=== PATIENT | male | born 1955 | race Caucasian/White ===

== ENCOUNTER 2016-11-09 05:46 | Day surgery (SDC) | payer MEDICARE ==
[2016-11-09] MEDS ORDERED: Versed 2 MG/2 ML Injection IV ONE (06:00)
[2016-11-09] MEDS ORDERED: DIPRIVAN 200 MG/20 ML IV ONE (06:00)
[2016-11-09] MEDS ORDERED: Lactated Ringers 1,000 ML IV SCH (06:30)
[2016-11-09] MEDS ORDERED: Lactated Ringers 1,000 ML IV ONE (08:15)
--- NOTE | 2016-11-09 09:50 | OP ---
SURGERY DATE/TIME: 11/09/2016 0655 PREOPERATIVE DIAGNOSIS: Screening exam. POSTOPERATIVE DIAGNOSIS: Normal colon. PROCEDURE: Colonoscopy. SURGEON: Dr. Marie. ANESTHESIA: MAC. Medications given by anesthesia department. HISTORY: The patient is a 60 year-old white male presenting now for screening colonoscopy. He was appraised of the risks of the procedure including the risk of perforation, phlebitis, untoward reaction to medication, bleeding and missed lesions. The patient verbalized his understanding and desired to have the procedure performed. DESCRIPTION OF PROCEDURE: The patient was given the medications by the anesthesia department. He had continuous pulse oximetry, ECG monitoring, intermittent blood pressure monitoring and tidal CO2 monitoring during the examination. He was placed in the left lateral decubitus position. A digital rectal examination was performed and revealed normal anal sphincter tone and no masses and normal prostate. The flexible Olympus pediatric colonoscope was used to intubate the rectum. A view of the colon was developed sequentially to the cecum. Upon insertion and withdrawal, including a retroflex view in the rectum, no mucosal lesions were encountered. The scope was removed from the patient who tolerated the procedure well and was sent back to OP recovery in good condition. The prep was noted to be fair to good.
[2016-11-09 11:32] VITALS: O2SAT 99
[2016-11-09 11:40] VITALS: BP 127/71; PULSE 62
== END 2016-11-09 08:25 | disposition home or self-care (01) ==
LOC: SDC 05:46
PROVIDERS: ATTEND Family Medicine
PROC: 0DJD8ZZ Inspection of Lower Intestinal Tract, Via Natural or Artificial Opening Endoscopic (ICD-10-PCS; principal; 2016-11-09)
DX: Z12.11 Encounter for screening for malignant neoplasm of colon (principal)
CPT/HCPCS: 00810; J2250; J2704

== ENCOUNTER 2022-07-13 05:40 | Day surgery (SDC) | payer MEDICARE ==
[2022-07-13] MEDS ORDERED: Lactated Ringers 1,000 ML IV SCH (06:30)
[2022-07-13] MEDS ORDERED: Versed 2 MG/2 ML Injection ONE (07:57)
[2022-07-13] MEDS ORDERED: DIPRIVAN 200 MG/20 ML IV ONE (07:57)
[2022-07-13] MEDS ORDERED: Xylocaine-Mpf 2% 5 Ml Vial ONE (07:57)
[2022-07-13 09:04] VITALS: O2SAT 98
[2022-07-13 09:10] VITALS: BP 122/78; PULSE 63
--- NOTE | 2022-07-13 11:18 | OP ---
SURGERY DATE/TIME: 07/13/2022 0759 PREOPERATIVE DIAGNOSIS: Screening exam. POSTOPERATIVE DIAGNOSIS: Mild to moderate sigmoid diverticulosis otherwise normal colon. PROCEDURE: Colonoscopy. SURGEON: Dr. Marie. ANESTHESIA: MAC. Medications given by anesthesia department. HISTORY: The patient is a 66-year-old white male presenting now for screening colonoscopy. He was appraised of the risks of the procedure including the risk of perforation, phlebitis, untoward reaction to medication, bleeding and missed lesions. The patient verbalized his understanding and desired to have the procedure performed. DESCRIPTION OF PROCEDURE: The patient was given the medications by the anesthesia department. He had continuous pulse oximetry, ECG monitoring and intermittent blood pressure monitoring during the examination. He was placed in the left lateral decubitus position. A digital rectal examination was performed and revealed normal anal sphincter tone, no masses and normal prostate. The flexible Olympus pediatric colonoscope was used to intubate the rectum. A view of the colon was developed sequentially to the cecum. Upon insertion and withdrawal was noted mild to moderate sigmoid diverticulosis otherwise no mucosal lesions were encountered. The scope was removed from the patient who tolerated the procedure well and was sent back to OP recovery in good condition. The prep was noted to be fair to good.
== END 2022-07-13 09:10 | disposition home or self-care (01) ==
LOC: SDC 05:40
PROVIDERS: ATTEND Family Medicine
DX: Z12.11 Encounter for screening for malignant neoplasm of colon (principal); K57.30 Diverticulosis of large intestine without perforation or abscess without bleeding
CPT/HCPCS: J2250; J2704

== ENCOUNTER 2023-12-19 17:35 | Observation (INO) | payer MEDICARE ==
--- NOTE | 2023-12-19 18:11 | ERPHSYRPT ---
- History of Present Illness Source: patient Exam Limitations: no limitations Patient Subjective Stated Complaint: Pt states 'I was out picking up sticks and my left arm just feels like something is stopping the blood flow, feels tight or swollen or stiff, it is like I have muscles again." Triage Nursing Assessment: Pt presented alert and oriented X 3, skin wpd. Pt ambulates with an upright steady gait, able to speak in clear full sentences. Pt left upper arm slightly larger than right, good CSM X 4. Occurred: this afternoon Method of Injury: unknown Quality: constant, tightness Severity of Pain-Max: none Severity of Pain-Current: none Extremities Pain Location: arm: left, elbow: left, forearm: left Modifying Factors: Improves With: nothing Associated Symptoms: No back pain, No chest discomfort, No chest pain, No jaw pain, No short of breath Hx Tetanus, Diphtheria Vaccination/Date Given: Yes (UNKNOWN) Hx Influenza Vaccination/Date Given: No Hx Pneumococcal Vaccination/Date Given: No Immunizations Up to Date: No <EPIFANIO DELATORRE - Last Filed: 12/19/23 18:51> <AYDEN HOANG - Last Filed: 12/19/23 23:19> - History of Present Illness Time Seen by Provider: 12/19/23 17:55 Physician History: 68yo m presents to ED via private vehicle for roughly 2h of LUE swelling involving his medial bicep and proximal medial forearm. Pt reports he noticed the swelling and tightness in his upper arm while he was picking up sticks in his yard. Pt denies any trauma to the area, denies any sob or cp. Pt reports he had pacemaker placed 4 months ago at [facility]. Pt denies any pain or change in sensation in the LUE. Pt reports some pain in the shoulder that is chronic. Pt has full ROM at left shoulder, elbow and wrist. (EPIFANIO DELATORRE) Allergies/Adverse Reactions: No Known Drug Allergies Allergy (Verified 07/13/22 06:20) Home Medications: Ascorbic Acid [Vitamin C] 1,000 mg PO BID 07/13/22 [History] Multivitamin [Multi-Vitamin Daily] 1 each PO DAILY 07/13/22 [History] Travel Risk - International Travel Have you traveled outside of the country in past 3 weeks: No - Emerging Infectious Disease Are you exhibiting symptoms associated with any current EIDs: No <EPIFANIO DELATORRE Filed: 12/19/23 18:51> - Review of Systems Constitutional: No Symptoms Respiratory: No Symptoms Cardiac: No Symptoms Abdominal/Gastrointestinal: No Symptoms Musculoskeletal: Other (swelling left UE) <EPIFANIO DELATORRE Filed: 12/19/23 18:51> - Past Medical History Pertinent Past Medical History: Yes Neurological History: No Pertinent History ENT History: No Pertinent History Cardiac History: No Pertinent History Respiratory History: No Pertinent History Endocrine Medical History: No Pertinent History Musculoskeletal History: Arthritis GI Medical History: No Pertinent History History: No Pertinent History Psycho-Social History: No Pertinent History Male Reproductive Disorders: No Pertinent History Other Medical History: 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 - Past Surgical History Past Surgical History: Yes Neuro Surgical History: No Pertinent History Cardiac: No Pertinent History Respiratory: No Pertinent History Gastrointestinal: Cholecystectomy Genitourinary: No Pertinent History Musculoskeletal: No Pertinent History Male Surgical History: No Pertinent History Other Surgical History: BACK SURGERY,colonscopy. pacemaker - Social History Smoking Status: Former smoker Exposure to second hand smoke: No Drug Use: none Patient Lives Alone: No - Social Determinants of Health Will the patient participate in the screening: Declined to provide <EPIFANIO DELATORRE Filed: 12/19/23 18:51> - Physical Exam General Appearance: no apparent distress, alert Cardiovascular/Respiratory Exam: chest non-tender, normal breath sounds, regular rate/rhythm, heart sounds normal, no respiratory distress, No subcutaneous emphysema Shoulder Exam: normal inspection, non-tender, no evidence of injury, normal ROM Elbow/Forearm Exam: non-tender, no evidence of injury, normal ROM, swelling (Left), No bone tenderness, No deformity, No pain, No soft tissue tenderness Wrist Exam: normal inspection, non-tender, no evidence of injury, normal ROM Hand Exam: normal inspection, non-tender, no evidence of injury, normal ROM Neuro/Tendon Exam: normal sensation, normal motor functions, normal tendon functions, responds to pain, no evidence tendon injury Mental Status Exam: alert, oriented x 3, cooperative Skin Exam: warm, dry, other (slightly erythematous ) SpO2 Interpretation: normal SpO2: 98 O2 Delivery: Room Air <EPIFANIO DELATORRE Filed: 12/19/23 18:51> - Nursing Vital Signs Nursing Vital Signs: Initial Vital Signs Temperature 97.6 F 12/19/23 17:40 Pulse Rate 88 12/19/23 17:40 Respiratory Rate 20 12/19/23 17:40 Blood Pressure 146/89 12/19/23 17:40 O2 Sat by Pulse Oximetry 98 12/19/23 17:40 Pain Scale Pain Intensity 0 - Course EKG Interpreted by Me: RATE (71), Sinus Rhythm, Non-specific ST Changes, Other (qtcb 419, not suggestive of acute ischemia) <EPIFANIO DELATORRE - Last Filed: 12/19/23 18:51> - CT Exams Chest CT Interpretation: Tele-radiologist Report, No PE Left Upper Extremity CT Interpretation: Tele-radiologist Report, Other (ulnar and interosseus artery possible thrombosis) - Radiology Ultrasound Exam Left Venous Upper Extremity Ultrasound: tele radiology report, Other (left subclavian thrombosis) <AYDEN HOANG - Last Filed: 12/19/23 23:19> Ordered Tests: Active Orders 24 hr Category Date Time Status EKG-ER Only STAT Care 12/19/23 17:57 Active IV Insertion STAT Care 12/19/23 19:33 Active CHEST WITH CONTRAST [CT] Stat Exams 12/19/23 19:35 Completed CTA UPPER EXTREMITY W/CONTRAST [CT] Stat Exams 12/19/23 19:35 Completed VENOUS UNILAT/LIMITED EXTREMIT [US] Stat Exams 12/19/23 17:59 Completed CBC W DIFF Stat Lab 12/19/23 18:10 Completed CMP Stat Lab 12/19/23 18:10 Completed D-DIMER QUANTITATIVE Stat Lab 12/19/23 18:10 Completed PROTIME WITH INR Stat Lab 12/19/23 18:10 Completed PTT Stat Lab 12/19/23 18:10 Completed TROPONIN Q4H Lab 12/19/23 18:10 Completed TROPONIN Q4H Lab 12/19/23 22:37 Completed TROPONIN Q4H Lab 12/20/23 02:00 Ordered Transfer Order Routine Transfer 12/19/23 Ordered Medication Summary Discontinued Medications Generic Name Dose Route Start Last Admin Trade Name Freq PRN Reason Stop Dose Admin Enoxaparin Sodium 100 mg 12/19/23 19:45 Enoxaparin Sodium 100 Mg/Ml Syringe 1 mg/kg (100 mg) 12/19/23 19:46 SQ ONCE ONE Enoxaparin Sodium 100 mg 12/19/23 19:42 12/19/23 19:44 Enoxaparin Sodium 120 Mg/0.8 Ml Syringe SQ 12/19/23 19:43 100 mg STAT STA Administration Enoxaparin Sodium Confirm 12/19/23 19:41 Enoxaparin Sodium 120 Mg/0.8 Ml Syringe Administered 12/19/23 19:42 Dose 120 mg SQ .STK-MED ONE Lab/Rad Data: Laboratory Result Diagrams 12/19/23 18:10 12/19/23 18:10 Laboratory Results 12/19/23 12/19/23 12/19/23 Range/Units 22:37 18:10 18:10 WBC (4.23-9.07) x10^3/uL RBC (4.63-6.08) x10^6/uL Hgb (13.7-17.5) g/dL Hct (40.1-51.0) % MCV (79.0-92.2) fL MCH (25.7-32.2) pg MCHC (32.3-36.5) g/dL RDW (11.6-14.4) % Plt Count (163-337) x10^3/uL MPV (9.4-12.4) fL Gran % (34.0-67.9) % Immature Gran % (Auto) (0.001-0.429) % Nucleat RBC Rel Count (0.00-0.2) % Eos # (Auto) (0.04-0.54) x10^3/uL Immature Gran # (Auto) (0.001-0.031) x10^3u/L Absolute Lymphs (auto) (1.32-3.57) x10^3/uL Absolute Monos (auto) (0.30-0.82) x10^3/uL Absolute Nucleated RBC (0.00-0.012) x10^3u/L Lymphocytes % (21.8-53.1) % Monocytes % (5.3-12.2) % Eosinophils % (0.8-7.0) % Basophils % (0.2-1.2) % Absolute Granulocytes (1.78-5.38) x10^3/uL Basophils # (0.01-0.08) x10^3/uL PT 10.6 (9.4-12.5) SECONDS INR 0.97 (0.8-3.0) APTT 27.7 (25.1-36.5) SECONDS D-Dimer 1.19 H* (0.0-0.50) mg/L Sodium (135-145) mmol/L Potassium (3.5-5.1) mmol/L Chloride (98-107) mmol/L Carbon Dioxide (22-30) mmol/L Anion Gap (5-15) MEQ/L BUN (9-20) mg/dL Creatinine (0.66-1.25) mg/dL Estimated GFR ML/MIN Glucose (74-106) mg/dL Calcium (8.4-10.2) mg/dL Total Bilirubin (0.2-1.3) mg/dL AST (17-59) U/L ALT (0-50) U/L Alkaline Phosphatase (38-126) U/L Troponin I < 0.012 < 0.012 (0.000-0.033) ng/mL Serum Total Protein (6.3-8.2) g/dL Albumin (3.5-5.0) g/dL 12/19/23 12/19/23 Range/Units 18:10 18:10 WBC 7.1 (4.23-9.07) x10^3/uL RBC 4.85 (4.63-6.08) x10^6/uL Hgb 15.1 (13.7-17.5) g/dL Hct 44.5 (40.1-51.0) % MCV 91.8 (79.0-92.2) fL MCH 31.1 (25.7-32.2) pg MCHC 33.9 (32.3-36.5) g/dL RDW 12.4 (11.6-14.4) % Plt Count 175 (163-337) x10^3/uL MPV 9.5 (9.4-12.4) fL Gran % 66.7 (34.0-67.9) % Immature Gran % (Auto) 0.3 (0.001-0.429) % Nucleat RBC Rel Count 0.0 (0.00-0.2) % Eos # (Auto) 0.08 (0.04-0.54) x10^3/uL Immature Gran # (Auto) 0.02 (0.001-0.031) x10^3u/L Absolute Lymphs (auto) 1.55 (1.32-3.57) x10^3/uL Absolute Monos (auto) 0.70 (0.30-0.82) x10^3/uL Absolute Nucleated RBC 0.00 (0.00-0.012) x10^3u/L Lymphocytes % 21.8 (21.8-53.1) % Monocytes % 9.8 (5.3-12.2) % Eosinophils % 1.1 (0.8-7.0) % Basophils % 0.3 (0.2-1.2) % Absolute Granulocytes 4.74 (1.78-5.38) x10^3/uL Basophils # 0.02 (0.01-0.08) x10^3/uL PT (9.4-12.5) SECONDS INR (0.8-3.0) APTT (25.1-36.5) SECONDS D-Dimer (0.0-0.50) mg/L Sodium 139 (135-145) mmol/L Potassium 3.7 (3.5-5.1) mmol/L Chloride 107 (98-107) mmol/L Carbon Dioxide 24 (22-30) mmol/L Anion Gap 12.1 (5-15) MEQ/L BUN 11 (9-20) mg/dL Creatinine 0.95 (0.66-1.25) mg/dL Estimated GFR 88.3 ML/MIN Glucose 109 H (74-106) mg/dL Calcium 9.4 (8.4-10.2) mg/dL Total Bilirubin 0.70 (0.2-1.3) mg/dL AST 32 (17-59) U/L ALT 24 (0-50) U/L Alkaline Phosphatase 66 (38-126) U/L Troponin I (0.000-0.033) ng/mL Serum Total Protein 7.2 (6.3-8.2) g/dL Albumin 4.0 (3.5-5.0) g/dL <EPIFANIO DELATORRE - Last Filed: 12/19/23 18:51> - Progress Progress: improved Discussed with Dr.: Other (Shahida Ramos) Counseled pt/family regarding: lab results, diagnosis, need for follow-up, rad results <AYDEN HOANG - Last Filed: 12/19/23 23:19> - Progress Progress Note: 12/19/23 18:42 D dimer elevated at 1.19, US called in for DVT evaluation (EPIFANIO DELATORRE) 12/19/23 19:[address] Delatorre at 1900, LUE venous duplex pending. Results reported back to me at 1935, US shows obstructing left subclavian DVT. 100mg Lovenox ordered for loading dose, CTA left upper extremity and chest ordered. Initiated consultation with [facility] vascular team to discuss next steps. 2002 - Discussed case with Dr. Ramos, top lift compresser at [facility] who reviewed US and recommended observation and bridge Lovenox to Xarelto and have patient follow up with his aircraft seat upholsterer early next week. Did advise that if needed there wasn't anyone at [place] that would be able to thrombectomy at this location and recommended [place]. 2017 - Discussed case with Dr. Pinedo, vascular at [facility] in [place] who agreed with previous plan, would review additional imaging once available to make final decision. CTA chest and left upper extremity resulted. Chest negative for PE. LUE showed possible ulnar and interosseous artery thrombosis. 2252 - Discussed with Dr. Pinedo again after imaging, he reviewed imaging with me on the phone and did not agree that the ulnar or interosseous artery was thrombosed and recommended bridge from Lovenox to Xarelto with close follow up with patient's aircraft seat upholsterer. 2306 - Discussed case with Dr. Colón who accepted for observation. (AYDEN HOANG) Medical Desision Making - Diagnostic Testing Diagnostic test were ordered, analyzed, and reviewed by me: Yes Radiological Interpretation: Interpreted by me, Reviewed by me, Teleradiologist Report - Risk of complications The pt has a mod risk of morbidity or mortality based on: Need for prescription drug management The pt has a high risk of morbidity or mortality based on: Decision regarding hospitilization or escalation of hosp level of care <AYDEN HOANG - Last Filed: 12/19/23 23:19> - Departure Departure Disposition: Home Critical Care Time: No <EPIFANIO DELATORRE - Last Filed: 12/19/23 18:51> - Departure Departure Disposition: Observation Critical Care Time: No <AYDEN HOANG - Last Filed: 12/19/23 23:19> - Departure Clinical Impression: Left arm swelling, Left subclavian vein thrombosis Condition: Good Referrals: LUCIA TITUS [Primary Care Provider] - Follow up/PCP as directed Instructions: Deep Vein Thrombosis (Blood Clots in the Arm) (DC)
[2023-12-19 18:16] LABS: Absolute Neutrophil Ct (ANC) 4.74 x10^3/uL (1.78-5.38); BASOPHIL % 0.3 % (0.2-1.2); Basophil (Absolute #) 0.02 x10^3/uL (0.01-0.08); Eosinophil % 1.1 % (0.8-7.0); Eosinophil (Absolute #) 0.08 x10^3/uL (0.04-0.54); Hematocrit 44.5 % (40.1-51.0); Hemoglobin 15.1 g/dL (13.7-17.5); IMMATURE GRAN # 0.02 x10^3u/L (0.001-0.031); IMMATURE GRAN % 0.3 % (0.001-0.429); Lymphocyte (Absolute #) 1.55 x10^3/uL (1.32-3.57); Lymphocytes % 21.8 % (21.8-53.1); Mean Cell Volume 91.8 fL (79.0-92.2); Mean Corpuscular Hemoglobin 31.1 pg (25.7-32.2); Mean Corpuscular Hgb Concent. 33.9 g/dL (32.3-36.5); Mean Platelet Volume 9.5 fL (9.4-12.4); Monocytes % 9.8 % (5.3-12.2); Neutrophil % 66.7 % (34.0-67.9); Platelet Count 175 x10^3/uL (163-337); Red Blood Count 4.85 x10^6/uL (4.63-6.08); Red Cell Distribution Width 12.4 % (11.6-14.4); White Blood Count 7.1 x10^3/uL (4.23-9.07)
[2023-12-19 18:30] LABS: ANION GAP 12.1 MEQ/L (5-15); BILIRUBIN,TOTAL 0.7 mg/dL (0.2-1.3); Calcium 9.4 mg/dL (8.4-10.2); Creatinine 1 0.95 mg/dL (0.66-1.25); EST GLOMERULAR FILTRATION RATE 88.3 ML/MIN; Potassium 3.7 mmol/L (3.5-5.1); Total Protein 7.2 g/dL (6.3-8.2)
[2023-12-19 18:39] LABS: INR 0.97 (0.8-3.0); PROTIME 10.6 SECONDS (9.4-12.5); PTT 27.7 SECONDS (25.1-36.5)
[2023-12-19 18:42] LABS: D-DIMER QUANTITATIVE 1.19 mg/L (0.0-0.50)
[2023-12-19] MEDS ORDERED: ENOXAPARIN SODIUM SQ ONE ×2 (19:41→19:45)
[2023-12-19] MEDS: ENOXAPARIN SODIUM SQ STA (19:44)
--- NOTE | 2023-12-19 20:11 | XRAY ---
Indication: Left upper extremity swelling. Status post pacemaker placement. Two-dimensional sonogram and color Doppler imaging major venous vessels left upper extremity performed. Comparison: None Evaluation subclavian vein limited due to cardiac pacer leads in situ. No flow in the subclavian vein. No thrombus seen in the remaining left jugular, axillary, basilic, brachial, cephalic, median cubital, radial, and ulnar veins. Patent veins demonstrate normal compressibility and normal venous waveforms. Impression: 1. Limited left upper extremity venous sonogram due to cardiac pacer leads in subclavian vein. No flow in subclavian vein. Cannot exclude venous thrombus. 2. Remaining left upper extremity negative for venous thrombosis. Comment: Preliminary report was given.
--- NOTE | 2023-12-19 22:11 | XRAY ---
CLINICAL HISTORY: left arm pain, swelling, dvt COMPARISON: None. TECHNIQUE: Contiguous 3.[address] images of the chest were acquired with administration of intravenous contrast. Coronal and sagittal reconstructions were obtained. One of the following dose reduction techniques were utilized for this exam: Automated exposure control, adjustment of the mA and/or kV according to patient size, use of iterative reconstruction. FINDINGS: No evidence of acute pulmonary thromboembolism. 5 mm calcified nodule in posterior segment of right upper lobe. Minimal subpleural basal atelectatic changes. No free or encysted pleural effusion. Heart size is normal, and there is no pericardial effusion. No pathologically enlarged mediastinal, hilar or axillary lymph node identified. There is no definite mass lesion in the chest wall. Degenerative changes in thoracic spine. Scanned upper abdomen is unremarkable. IMPRESSION: 1. No evidence of acute pulmonary thromboembolism. 2. 5 mm calcified nodule in posterior segment of right upper lobe. No follow-up is required 3. Minimal subpleural basal atelectatic changes. Electronically Signed by: Eusebio Cardenas MD. (12/19/2023 22:07:37 EDT)
--- NOTE | 2023-12-19 22:41 | XRAY ---
CLINICAL HISTORY: left arm pain, swelling, dvt COMPARISON: No previous studies are available for comparison. TECHNIQUE: CT angiography of the left upper extremity was performed with the administration of intravenous contrast. One of the following dose reduction techniques was utilized for this exam. Automated exposure control, adjustment of the mA and/or kV according to patient size, and use of iterative reconstruction. 3D reconstruction was performed. FINDINGS: Vessels: The left subclavian, axillary and brachial arteries are normally opacified with contrast. Faint opacification of proximal and mid portions of left ulnar artery with non-opacification in its distal portion, representing thrombosis. The left interosseous arteriea are also not visualized. The left radial artery is normally opacified. Bones: The bony structures are intact with no evidence of acute fracture or dislocation. There is no evidence of lytic or sclerotic lesions. The cortical and trabecular bone patterns are normal. Joints: The joint spaces are preserved without evidence of joint effusion, subluxation, or significant degenerative changes. Soft Tissues: Mild soft tissue swelling with edema in left upper extremity, predominantly around the elbow region. IMPRESSION: 1. Faint opacification of proximal and mid portions of left ulnar artery with non-opacification in its distal portion, representing thrombosis. 2. The left interosseous arteries are also not visualized. Possible thrombosis 3. Mild soft tissue swelling with edema in left upper extremity, predominantly around the elbow region. [facility] ER was called at [phone] at 9:33 PM ORDER MANAGEMENT SPECIALIST, 12/19/2023 and [facility] Nurse was informed regarding the presence of Significant Medical Findings in the report. Electronically Signed by: Eusebio Cardenas MD. (12/19/2023 22:36:11 EDT)
--- NOTE | 2023-12-19 23:39 | PCM.HP ---
History of Present Illness - Chief Complaint Chief Complaint: Left upper extremity swelling, sudden onset Date: 12/19/23 History of Present Illness: is a 68 year old male with medical history significant for came to the ER with complaint of sudden onset of left upper extremity swelling while he was picking up substances from his yard. Denied having any chest pain shortness of breath dizziness no prior episode of this type of swelling ever before noted. In the ER initial blood pressure was not 146/89 he was afebrile with pulse of 70 as far as blood workup concerned all came out unremarkable .D-dimer was running high he got left upper extremity DVT scan that came back positive for obstructing left subclavian DVT. He received 1 stat dose of Lovenox .in the [facility] vascular team consulted advised to get CTA left upper extremity and chest. It came out concerning for left ulnar artery thrombosis discussed case with Dr. Pinedo at [facility] who agreed with the plan of giving Lovenox and discharging on Eliquis with follow-up his chief procurement officer early next week. He reviewed images in regard to ulnar and interosseous artery thrombosis did not seem convinced about the report. We are admitting patient for observation overnight. - Review of Systems All Other Systems: Reviewed and Negative Medications & Allergies Home Medications: Home Medication List Ascorbic Acid [Vitamin C] 1,000 mg PO BID 07/13/22 [History Confirmed 12/19/23] Multivitamin [Multi-Vitamin Daily] 1 each PO DAILY 07/13/22 [History Confirmed 12/19/23] Allergies/Adverse Reactions: Allergies Allergy/AdvReac Type Severity Reaction Status Date / Time No Known Drug Allergies Allergy Verified 12/20/23 00:14 - Past Medical History Past Medical History: Yes Neurological History: No Pertinent History ENT History: No Pertinent History Cardiac History: No Pertinent History Respiratory History: No Pertinent History Endocrine Medical History: No Pertinent History Musculoskelatal History: Arthritis GI Medical History: No Pertinent History History: No Pertinent History Pyscho-Social History: No Pertinent History Male Reproductive Disorders: No Pertinent History Comment: 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 - Past Surgical History Past Surgical History: Yes Neuro Surgical History: No Pertinent History Cardiac History: No Pertinent History Respiratory Surgery: No Pertinent History GI Surgical History: Cholecystectomy Genitourinary Surgical Hx: No Pertinent History Musculskeletal Surgical Hx: No Pertinent History Male Surgical History: No Pertinent History Other Surgical History: BACK SURGERY,colonscopy. pacemaker Significant Family History: no pertinent family hx - Social History Smoking Status: Former smoker Exposure to second hand smoke: No Alcohol: None Drug Use: none - Social Determinants of Health Will the patient participate in the screening: Declined to provide - Physical Exam Vital Signs: Vital Signs - 24 hr Temp Pulse Resp BP BP Pulse Ox 12/19/23 23:00 60 18 127/76 97 12/19/23 22:30 62 16 144/77 98 12/19/23 22:00 60 124/74 98 12/19/23 21:36 62 135/77 97 12/19/23 20:30 60 107/70 12/19/23 20:15 64 131/79 97 12/19/23 20:00 63 16 133/77 97 12/19/23 19:45 60 131/77 97 12/19/23 19:30 64 139/80 98 12/19/23 19:15 60 119/73 97 12/19/23 19:00 60 123/80 97 12/19/23 18:51 98 12/19/23 18:45 60 110/81 98 12/19/23 18:30 60 124/78 97 12/19/23 18:15 60 125/79 96 12/19/23 18:00 75 18 128/84 96 12/19/23 17:45 146/78 96 12/19/23 17:40 97.6 F 88 20 146/89 98 Additional Findings: 12/19/23 23:38 HEENT Young aged, average built in no distress NECK Supple,no thyromegaly, CVS S1+S2 + 0, no murmers RESP Bilateral equal air entry without Crepts/Wheezes heard GIT Soft non tender,non distended Skin, No rah, no Bruises LEGS No Edema PSYCH Normal,mood, judgement and insight NEURO AOX3, no focal deficit Results - Labs Lab/Micro Results: Lab Results-Last 24 Hours 12/19/23 12/19/23 12/19/23 Range/Units 18:10 18:10 18:10 WBC 7.1 (4.23-9.07) x10^3/uL RBC 4.85 (4.63-6.08) x10^6/uL Hgb 15.1 (13.7-17.5) g/dL Hct 44.5 (40.1-51.0) % MCV 91.8 (79.0-92.2) fL MCH 31.1 (25.7-32.2) pg MCHC 33.9 (32.3-36.5) g/dL RDW 12.4 (11.6-14.4) % Plt Count 175 (163-337) x10^3/uL MPV 9.5 (9.4-12.4) fL Gran % 66.7 (34.0-67.9) % Immature Gran % (Auto) 0.3 (0.001-0.429) % Nucleat RBC Rel Count 0.0 (0.00-0.2) % Eos # (Auto) 0.08 (0.04-0.54) x10^3/uL Immature Gran # (Auto) 0.02 (0.001-0.031) x10^3u/L Absolute Lymphs (auto) 1.55 (1.32-3.57) x10^3/uL Absolute Monos (auto) 0.70 (0.30-0.82) x10^3/uL Absolute Nucleated RBC 0.00 (0.00-0.012) x10^3u/L Lymphocytes % 21.8 (21.8-53.1) % Monocytes % 9.8 (5.3-12.2) % Eosinophils % 1.1 (0.8-7.0) % Basophils % 0.3 (0.2-1.2) % Absolute Granulocytes 4.74 (1.78-5.38) x10^3/uL Basophils # 0.02 (0.01-0.08) x10^3/uL PT 10.6 (9.4-12.5) SECONDS INR 0.97 (0.8-3.0) APTT 27.7 (25.1-36.5) SECONDS D-Dimer 1.19 H* (0.0-0.50) mg/L Sodium 139 (135-145) mmol/L Potassium 3.7 (3.5-5.1) mmol/L Chloride 107 (98-107) mmol/L Carbon Dioxide 24 (22-30) mmol/L Anion Gap 12.1 (5-15) MEQ/L BUN 11 (9-20) mg/dL Creatinine 0.95 (0.66-1.25) mg/dL Estimated GFR 88.3 ML/MIN Glucose 109 H (74-106) mg/dL Calcium 9.4 (8.4-10.2) mg/dL Total Bilirubin 0.70 (0.2-1.3) mg/dL AST 32 (17-59) U/L ALT 24 (0-50) U/L Alkaline Phosphatase 66 (38-126) U/L Troponin I (0.000-0.033) ng/mL Serum Total Protein 7.2 (6.3-8.2) g/dL Albumin 4.0 (3.5-5.0) g/dL 12/19/23 12/19/23 Range/Units 18:10 22:37 WBC (4.23-9.07) x10^3/uL RBC (4.63-6.08) x10^6/uL Hgb (13.7-17.5) g/dL Hct (40.1-51.0) % MCV (79.0-92.2) fL MCH (25.7-32.2) pg MCHC (32.3-36.5) g/dL RDW (11.6-14.4) % Plt Count (163-337) x10^3/uL MPV (9.4-12.4) fL Gran % (34.0-67.9) % Immature Gran % (Auto) (0.001-0.429) % Nucleat RBC Rel Count (0.00-0.2) % Eos # (Auto) (0.04-0.54) x10^3/uL Immature Gran # (Auto) (0.001-0.031) x10^3u/L Absolute Lymphs (auto) (1.32-3.57) x10^3/uL Absolute Monos (auto) (0.30-0.82) x10^3/uL Absolute Nucleated RBC (0.00-0.012) x10^3u/L Lymphocytes % (21.8-53.1) % Monocytes % (5.3-12.2) % Eosinophils % (0.8-7.0) % Basophils % (0.2-1.2) % Absolute Granulocytes (1.78-5.38) x10^3/uL Basophils # (0.01-0.08) x10^3/uL PT (9.4-12.5) SECONDS INR (0.8-3.0) APTT (25.1-36.5) SECONDS D-Dimer (0.0-0.50) mg/L Sodium (135-145) mmol/L Potassium (3.5-5.1) mmol/L Chloride (98-107) mmol/L Carbon Dioxide (22-30) mmol/L Anion Gap (5-15) MEQ/L BUN (9-20) mg/dL Creatinine (0.66-1.25) mg/dL Estimated GFR ML/MIN Glucose (74-106) mg/dL Calcium (8.4-10.2) mg/dL Total Bilirubin (0.2-1.3) mg/dL AST (17-59) U/L ALT (0-50) U/L Alkaline Phosphatase (38-126) U/L Troponin I < 0.012 < 0.012 (0.000-0.033) ng/mL Serum Total Protein (6.3-8.2) g/dL Albumin (3.5-5.0) g/dL - Radiology Impressions Radiology Exams & Impressions: Radiology Procedures Category Date Time Status CHEST WITH CONTRAST [CT] Stat Exams 12/19/23 19:35 Completed CTA UPPER EXTREMITY W/CONTRAST [CT] Stat Exams 12/19/23 19:35 Completed VENOUS UNILAT/LIMITED EXTREMIT [US] Stat Exams 12/19/23 17:59 Completed Assessment/Plan (1) Left arm swelling Current Visit: Yes Status: Acute Code(s): M79.89 - OTHER SPECIFIED SOFT TISSUE DISORDERS (2) Left subclavian vein thrombosis Current Visit: Yes Status: Acute Code(s): I82.B12 - ACUTE EMBOLISM AND THROMBOSIS OF LEFT SUBCLAVIAN VEIN Telemedicine Encounter - Telemedicine Encounter Telemedicine Encounter: The entirety of this encounter was performed via Telemedicine This visit was performed using real-time audio and video connection between my location and thepatients locationwith the assistance of a surrogateat the patients location. Written or verbal consent was obtained from the patient/guardian to perform this visit using[facility] [employer] technology. Any patient questions regarding the telemedicine interaction were answered. 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 I have reviewed patient lab vitals and imaging in detail all question and concerns were addressed
[2023-12-20 00:13] VITALS: RESP 16
[2023-12-20] MEDS ORDERED: NORCO 5/325 MG PO PRN (00:33)
[2023-12-20] MEDS: ENOXAPARIN SODIUM SQ SCH (02:19)
[2023-12-20 04:50] LABS: Hematocrit 42.3 % (40.1-51.0); Hemoglobin 14.2 g/dL (13.7-17.5); Mean Cell Volume 91.6 fL (79.0-92.2); Mean Corpuscular Hemoglobin 30.7 pg (25.7-32.2); Mean Corpuscular Hgb Concent. 33.6 g/dL (32.3-36.5); Mean Platelet Volume 10.1 fL (9.4-12.4); Platelet Count 174 x10^3/uL (163-337); Red Blood Count 4.62 x10^6/uL (4.63-6.08); White Blood Count 6.4 x10^3/uL (4.23-9.07)
[2023-12-20 05:21] LABS: ANION GAP 8.9 MEQ/L (5-15); Creatinine 1 0.91 mg/dL (0.66-1.25); Potassium 3.5 mmol/L (3.5-5.1)
[2023-12-20 07:54] VITALS: TEMP 97.8
--- NOTE | 2023-12-20 09:16 | PCM.DS ---
Discharge Summary Date of Admission: 12/19/23 23:40 Date of Discharge: 12/20/23 Admitting Physician: STEFANI CEE MD Primary Care Provider: LUCIA TITUS Allergies Allergies No Known Drug Allergies Allergy (Verified 12/20/23 00:14) Hospital Summary - Hospital Course Hospital Course: is a 68 year old male with medical history significant for came to the ER with complaint of sudden onset of left upper extremity swelling while he was picking up substances from his yard. Denied having any chest pain shortness of breath dizziness no prior episode of this type of swelling ever before noted. In the ER initial blood pressure was not 146/89 he was afebrile with pulse of 70 as far as blood workup concerned all came out unremarkable. D-dimer elevated, left upper extremity DVT scan that came back positive for obstructing left subclavian DVT. He received 1 stat dose of Lovenox. In the ER Dr. Olsen discussed with [facility] vascular team who advised to get CTA left upper extremity and chest. 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 Olsen-discussed case with Dr. Pinedo at [facility] who agreed with the plan of giving Lovenox and discharging on Eliquis with follow-up his insurance broker early next week. He reviewed images in regard to ulnar and interosseous artery thrombosis did not seem convinced about the report. Eliquis started today. Case management to check on cost of meds prior to d/c. Advised pt to elevate left arm to heart level at home. - Vitals & Intake/Output Vital Signs: Vital Signs Temperature 97.8 F 12/20/23 07:54 Pulse Rate 62 12/20/23 07:54 Respiratory Rate 16 12/20/23 07:54 Blood Pressure 114/58 12/20/23 07:54 O2 Sat by Pulse Oximetry 95 12/20/23 07:54 Intake & Output: Intake & Output 12/17/23 12/18/23 12/19/23 12/20/23 11:59 11:59 11:59 11:59 Intake Total 480 Balance 480 Weight 89 kg - Lab Result Diagrams: 12/20/23 04:20 12/20/23 04:20 Lab Results-Last 24 Hrs: Lab Results-Last 24 Hours 10/20/24 10/20/24 10/20/24 Range/Units 18:10 18:10 18:10 WBC 7.1 (4.23-9.07) x10^3/uL RBC 4.85 (4.63-6.08) x10^6/uL Hgb 15.1 (13.7-17.5) g/dL Hct 44.5 (40.1-51.0) % MCV 91.8 (79.0-92.2) fL MCH 31.1 (25.7-32.2) pg MCHC 33.9 (32.3-36.5) g/dL RDW 12.4 (11.6-14.4) % Plt Count 175 (163-337) x10^3/uL MPV 9.5 (9.4-12.4) fL Gran % 66.7 (34.0-67.9) % Immature Gran % (Auto) 0.3 (0.001-0.429) % Nucleat RBC Rel Count 0.0 (0.00-0.2) % Eos # (Auto) 0.08 (0.04-0.54) x10^3/uL Immature Gran # (Auto) 0.02 (0.001-0.031) x10^3u/L Absolute Lymphs (auto) 1.55 (1.32-3.57) x10^3/uL Absolute Monos (auto) 0.70 (0.30-0.82) x10^3/uL Absolute Nucleated RBC 0.00 (0.00-0.012) x10^3u/L Lymphocytes % 21.8 (21.8-53.1) % Monocytes % 9.8 (5.3-12.2) % Eosinophils % 1.1 (0.8-7.0) % Basophils % 0.3 (0.2-1.2) % Absolute Granulocytes 4.74 (1.78-5.38) x10^3/uL Basophils # 0.02 (0.01-0.08) x10^3/uL PT 10.6 (9.4-12.5) SECONDS INR 0.97 (0.8-3.0) APTT 27.7 (25.1-36.5) SECONDS D-Dimer 1.19 H* (0.0-0.50) mg/L Sodium 139 (135-145) mmol/L Potassium 3.7 (3.5-5.1) mmol/L Chloride 107 (98-107) mmol/L Carbon Dioxide 24 (22-30) mmol/L Anion Gap 12.1 (5-15) MEQ/L BUN 11 (9-20) mg/dL Creatinine 0.95 (0.66-1.25) mg/dL Estimated GFR 88.3 ML/MIN Glucose 109 H (74-106) mg/dL Calcium 9.4 (8.4-10.2) mg/dL Total Bilirubin 0.70 (0.2-1.3) mg/dL AST 32 (17-59) U/L ALT 24 (0-50) U/L Alkaline Phosphatase 66 (38-126) U/L Troponin I (0.000-0.033) ng/mL Serum Total Protein 7.2 (6.3-8.2) g/dL Albumin 4.0 (3.5-5.0) g/dL 12/19/23 12/19/23 12/20/23 Range/Units 18:10 22:37 04:20 WBC (4.23-9.07) x10^3/uL RBC (4.63-6.08) x10^6/uL Hgb (13.7-17.5) g/dL Hct (40.1-51.0) % MCV (79.0-92.2) fL MCH (25.7-32.2) pg MCHC (32.3-36.5) g/dL RDW (11.6-14.4) % Plt Count (163-337) x10^3/uL MPV (9.4-12.4) fL Gran % (34.0-67.9) % Immature Gran % (Auto) (0.001-0.429) % Nucleat RBC Rel Count (0.00-0.2) % Eos # (Auto) (0.04-0.54) x10^3/uL Immature Gran # (Auto) (0.001-0.031) x10^3u/L Absolute Lymphs (auto) (1.32-3.57) x10^3/uL Absolute Monos (auto) (0.30-0.82) x10^3/uL Absolute Nucleated RBC (0.00-0.012) x10^3u/L Lymphocytes % (21.8-53.1) % Monocytes % (5.3-12.2) % Eosinophils % (0.8-7.0) % Basophils % (0.2-1.2) % Absolute Granulocytes (1.78-5.38) x10^3/uL Basophils # (0.01-0.08) x10^3/uL PT (9.4-12.5) SECONDS INR (0.8-3.0) APTT (25.1-36.5) SECONDS D-Dimer (0.0-0.50) mg/L Sodium (135-145) mmol/L Potassium (3.5-5.1) mmol/L Chloride (98-107) mmol/L Carbon Dioxide (22-30) mmol/L Anion Gap (5-15) MEQ/L BUN (9-20) mg/dL Creatinine (0.66-1.25) mg/dL Estimated GFR ML/MIN Glucose (74-106) mg/dL Calcium (8.4-10.2) mg/dL Total Bilirubin (0.2-1.3) mg/dL AST (17-59) U/L ALT (0-50) U/L Alkaline Phosphatase (38-126) U/L Troponin I < 0.012 < 0.012 < 0.012 (0.000-0.033) ng/mL Serum Total Protein (6.3-8.2) g/dL Albumin (3.5-5.0) g/dL 12/20/23 12/20/23 Range/Units 04:20 04:20 WBC 6.4 (4.23-9.07) x10^3/uL RBC 4.62 L (4.63-6.08) x10^6/uL Hgb 14.2 (13.7-17.5) g/dL Hct 42.3 (40.1-51.0) % MCV 91.6 (79.0-92.2) fL MCH 30.7 (25.7-32.2) pg MCHC 33.6 (32.3-36.5) g/dL RDW 13.0 (11.6-14.4) % Plt Count 174 (163-337) x10^3/uL MPV 10.1 (9.4-12.4) fL Gran % (34.0-67.9) % Immature Gran % (Auto) (0.001-0.429) % Nucleat RBC Rel Count (0.00-0.2) % Eos # (Auto) (0.04-0.54) x10^3/uL Immature Gran # (Auto) (0.001-0.031) x10^3u/L Absolute Lymphs (auto) (1.32-3.57) x10^3/uL Absolute Monos (auto) (0.30-0.82) x10^3/uL Absolute Nucleated RBC (0.00-0.012) x10^3u/L Lymphocytes % (21.8-53.1) % Monocytes % (5.3-12.2) % Eosinophils % (0.8-7.0) % Basophils % (0.2-1.2) % Absolute Granulocytes (1.78-5.38) x10^3/uL Basophils # (0.01-0.08) x10^3/uL PT (9.4-12.5) SECONDS INR (0.8-3.0) APTT (25.1-36.5) SECONDS D-Dimer (0.0-0.50) mg/L Sodium 138 (135-145) mmol/L Potassium 3.5 (3.5-5.1) mmol/L Chloride 106 (98-107) mmol/L Carbon Dioxide 26 (22-30) mmol/L Anion Gap 8.9 (5-15) MEQ/L BUN 10 (9-20) mg/dL Creatinine 0.91 (0.66-1.25) mg/dL Estimated GFR 93.0 ML/MIN Glucose 94 (74-106) mg/dL Calcium 9.0 (8.4-10.2) mg/dL Total Bilirubin (0.2-1.3) mg/dL AST (17-59) U/L ALT (0-50) U/L Alkaline Phosphatase (38-126) U/L Troponin I (0.000-0.033) ng/mL Serum Total Protein (6.3-8.2) g/dL Albumin (3.5-5.0) g/dL - Radiology Exams Ordered Rad Exams-Entire Visit: Radiology Procedures Category Date Time Status CHEST WITH CONTRAST [CT] Stat Exams 12/19/23 19:35 Completed CTA UPPER EXTREMITY W/CONTRAST [CT] Stat Exams 12/19/23 19:35 Completed VENOUS UNILAT/LIMITED EXTREMIT [US] Stat Exams 12/19/23 17:59 Completed Discharge Exam General Appearance: no apparent distress, alert Neurologic Exam: alert, oriented x 3, cooperative, normal mood/affect, nml cerebellar function, sensation nml, No motor deficits Eye Exam: PERRL, EOMI, eyes nml inspection Ears, Nose, Throat Exam: normal ENT inspection, pharynx normal, moist mucous membranes Neck Exam: normal inspection, non-tender, supple, full range of motion Respiratory Exam: normal breath sounds, lungs clear, No respiratory distress Cardiovascular Exam: regular rate/rhythm, normal heart sounds Gastrointestinal/Abdomen Exam: soft, No tenderness, No mass Male Genitalia Exam: deferred Rectal Exam: deferred Back Exam: normal inspection, normal range of motion, No CVA tenderness, No vertebral tenderness Extremity Exam: normal inspection, normal range of motion, swelling (left arm) Skin Exam: normal color, warm, dry Final Diagnosis/Problem List - Final Discharge Diagnosis/Problem (1) Left arm swelling Current Visit: Yes Status: Acute Assessment & Plan: - LUE edema - Follows Dr. Leyva for cardiology- appointment made this week for f/u - Elevate left arm to heart level - As per DVT scan - Discussed in detail with [facility] cardiology prior to admission - Advised to continue Lovenox weight-based twice daily and plan to discharge on Xarelto with cardiology follow-up as outpatient in 1 week after discharge Code(s): M79.89 - OTHER SPECIFIED SOFT TISSUE DISORDERS (2) Left subclavian vein thrombosis Current Visit: Yes Status: Acute Assessment & Plan: -As per CT angio neck and chest -Discussed in detail prior to admission with Dr. Pinedo at [facility] vascular surgery department,npt convinced with the report finding -Will continue with plan as above Code(s): I82.B12 - ACUTE EMBOLISM AND THROMBOSIS OF LEFT SUBCLAVIAN VEIN (3) Status post cardiac pacemaker procedure Current Visit: Yes Status: Chronic Assessment & Plan: - Due to bradycardia, got PPM 3 months ago Code(s): Z95.0 - PRESENCE OF CARDIAC PACEMAKER - Discharge Discharge Date: 12/20/23 Disposition: Home, Self-Care Condition: Good Prescriptions: New Apixaban [Eliquis] 10 mg PO BID 7 Days #28 tablet Apixaban [Eliquis] 5 mg PO BID 30 Days #60 tablet Continue Multivitamin [Multi-Vitamin Daily] 1 each PO DAILY Ascorbic Acid [Vitamin C] 1,000 mg PO BID Follow up with: LUCIA TITUS [Primary Care Provider] - 12/24/23 9:30 am MAXWELL LEYVA [CONSULTING PHYSICIAN] - 12/30/23 2:25 pm ([facility] )
[2023-12-20] MEDS ORDERED: NON-FORMULARY ITEM (Multivitamin [Multi-Vitamin Daily] 1 EACH Tablet) PO SCH (10:00)
[2023-12-20] MEDS ORDERED: NON-FORMULARY ITEM (Ascorbic Acid [Vitamin C] 1,000 MG Tablet) PO SCH (10:00)
[2023-12-20] MEDS ORDERED: ENOXAPARIN SODIUM SQ SCH (10:00)
[2023-12-20] MEDS: ELIQUIS 2.5 MG TABLET PO SCH (10:17)
[2023-12-20] MEDS: THERAGRAN MULTIVITAMIN PO SCH (10:17)
[2023-12-20] MEDS: Vitamin C 500 MG PO SCH (10:17)
[2023-12-20 12:03] VITALS: BP 108/56; PULSE 61; O2SAT 94
== END 2023-12-20 12:51 | disposition home or self-care (01) ==
LOC: ED 17:35 → MED SURG 23:40
PROVIDERS: ADMIT Internal Medicine; ATTEND Internal Medicine
DX: I82.B12 Acute embolism and thrombosis of left subclavian vein (principal); M79.89 Other specified soft tissue disorders; Z95.0 Presence of cardiac pacemaker; Z79.899 Other long term (current) drug therapy
CPT/HCPCS: 36000; 36415; 71260; 73206; 80048; 80053; 84484; 85025; 85027; 85379; 85610; 85730; 93005; 93971; 96372; 99285; G0378; J1650; A9270-GY

== ENCOUNTER 2024-06-09 06:10 | Observation (INO) | payer MEDICARE, SELFPAY ==
[2024-06-09 06:23] VITALS: TEMP 96.8
[2024-06-09] MEDS ORDERED: BABY ASPIRIN 81 MG CHEW ONE (06:36)
[2024-06-09] MEDS: BABY ASPIRIN 81 MG CHEW PO ONE (06:36)
--- NOTE | 2024-06-09 06:36 | ERPHSYRPT ---
<MASON PERDUE - Last Filed: 06/09/24 06:33> - History of Present Illness Time Seen by Provider: 06/09/24 06:32 Historian: patient, family Exam Limitations: no limitations Patient Subjective Stated Complaint: pt states chest pain woke him up Triage Nursing Assessment: pt ambulated into the er; pt is axo x4; c/o chest pain; pt states 5/10 pressure to left chest; clear apical heart tone; strong isabel radial pulses; strong isabel pedal pulse; clear lung sounds in all lobes; no respiratory distress present; no edema present; skin PDW; vitals wnl Physician History: 68 years old male with history of sick sinus syndrome status post pacemaker placement presented in the ER with complaint of left-sided chest pain waking him up from sleep. Patient reports initially 8/10 intensity pain which gradually started to improve and now having more of a pressure with a 5/10 intensity without associated palpitations or shortness of breath. No radiation of pain. Denies any significant aggravating or relieving factors. 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 Allergies/Adverse Reactions: No Known Drug Allergies Allergy (Verified 06/09/24 06:17) Home Medications: Ascorbic Acid [Vitamin C] 1,000 mg PO BID 07/13/22 [History] Multivitamin [Multi-Vitamin Daily] 1 each PO DAILY 07/13/22 [History] Hx Tetanus, Diphtheria Vaccination/Date Given: Yes Hx Influenza Vaccination/Date Given: Yes Hx Pneumococcal Vaccination/Date Given: Yes Travel Risk - International Travel Have you traveled outside of the country in past 3 weeks: No - Emerging Infectious Disease Are you exhibiting symptoms associated with any current EIDs: No - Review of Systems Constitutional: No Symptoms Eyes: No Symptoms Ears, Nose, & Throat: No Symptoms Respiratory: No Symptoms Cardiac: Chest Pain Abdominal/Gastrointestinal: No Symptoms Genitourinary Symptoms: No Symptoms Musculoskeletal: No Symptoms Neurological: No Symptoms Endocrine: No Symptoms Hematologic/Lymphatic: No Symptoms - Past Medical History Pertinent Past Medical History: Yes Neurological History: No Pertinent History ENT History: No Pertinent History Cardiac History: No Pertinent History Respiratory History: No Pertinent History Endocrine Medical History: No Pertinent History Musculoskeletal History: Arthritis GI Medical History: No Pertinent History History: No Pertinent History Psycho-Social History: No Pertinent History Male Reproductive Disorders: No Pertinent History Other Medical History: 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 - Past Surgical History Past Surgical History: Yes Neuro Surgical History: No Pertinent History Cardiac: No Pertinent History Respiratory: No Pertinent History Gastrointestinal: Cholecystectomy Genitourinary: No Pertinent History Musculoskeletal: No Pertinent History Male Surgical History: No Pertinent History Other Surgical History: BACK SURGERY,colonscopy. pacemaker Significant Family History: no pertinent family hx - Social History Smoking Status: Former smoker Exposure to second hand smoke: Yes Drug Use: none - Social Determinants of Health Will the patient participate in the screening: Declined to provide - Physical Exam General Appearance: no apparent distress Eye Exam: PERRL/EOMI Ears, Nose, Throat Exam: normal ENT inspection Neck Exam: normal inspection, non-tender, supple, full range of motion Respiratory Exam: normal breath sounds, lungs clear Cardiovascular Exam: regular rate/rhythm, normal heart sounds Gastrointestinal/Abdomen Exam: soft, normal bowel sounds, No tenderness Back Exam: normal inspection, normal range of motion Extremity Exam: normal inspection, normal range of motion Neurologic Exam: alert, oriented x 3, cooperative Skin Exam: normal color SpO2 Interpretation: normal SpO2: 98 O2 Delivery: Room Air - Departure Clinical Impression: Chest pain Condition: Stable Referrals: LUCIA TITUS [Primary Care Provider] - Follow up/PCP as directed <WILLIE CHOU - Last Filed: 06/09/24 11:26> - History of Present Illness Nitro Today/Relief: 0.4 mg x 1, no relief Aspirin Treatment Today: 81 mg x 4 - Nursing Vital Signs Nursing Vital Signs: Initial Vital Signs Pulse Rate 60 06/09/24 06:13 Respiratory Rate 19 06/09/24 06:13 Blood Pressure 146/82 06/09/24 06:13 O2 Sat by Pulse Oximetry 98 06/09/24 06:13 Pain Scale Pain Intensity 3 - Course EKG Interpreted by Me: RATE, NORMAL AXIS, NORMAL INTERVALS, NORMAL QRS, NORMAL ST-T, Other (Paced rhythm) Ordered Tests: Active Orders 24 hr Category Date Time Status [employer] STAT Care 06/09/24 06:33 Active EKG-ER Only STAT Care 06/09/24 06:33 Active IV Insertion STAT Care 06/09/24 06:33 Active CHEST 1 VIEW (PORTABLE) Stat Exams 06/09/24 07:07 Completed CBC W DIFF Stat Lab 06/09/24 06:48 Completed CMP Stat Lab 06/09/24 06:48 Completed D-DIMER QUANTITATIVE Stat Lab 06/09/24 06:48 Completed LIPASE Stat Lab 06/09/24 06:48 Completed MAG [MAGNESIUM] Stat Lab 06/09/24 06:48 Completed NT PRO BNPII Stat Lab 06/09/24 06:48 Completed TROPONIN Q4H Lab 06/09/24 06:48 Completed TROPONIN Q4H Lab 06/09/24 10:07 Completed TROPONIN Q4H Lab 06/09/24 14:45 Ordered Medication Summary Discontinued Medications Generic Name Dose Route Start Last Admin Trade Name Freq PRN Reason Stop Dose Admin Aspirin 324 mg 06/09/24 06:33 06/09/24 06:36 Aspirin 81 Mg Tab.Chew PO 06/09/24 06:34 324 mg STAT ONE Administration Aspirin Confirm 06/09/24 06:36 Aspirin 81 Mg Tab.Chew Administered 06/09/24 06:37 Dose 324 mg .ROUTE .STK-MED ONE Ketorolac Tromethamine 15 mg 06/09/24 08:02 06/09/24 08:04 Ketorolac Tromethamine 30 Mg/Ml Inj IV 06/09/24 08:03 15 mg STAT ONE Administration Ketorolac Tromethamine Confirm 06/09/24 08:03 Ketorolac Tromethamine 30 Mg/Ml Inj Administered 06/09/24 08:04 Dose 30 mg .ROUTE .STK-MED ONE Nitroglycerin 0.4 mg 06/09/24 06:56 06/09/24 06:56 Nitroglycerin 0.4 Mg (Ed) 0.4 Mg Tab.Subl SL 06/09/24 06:57 0.4 mg STAT ONE Administration Nitroglycerin Confirm 06/09/24 06:56 Nitroglycerin 0.4 Mg (Ed) 0.4 Mg Tab.Subl Administered 06/09/24 06:57 Dose 0.4 mg SL .STK-MED ONE Nitroglycerin 0.4 mg 06/09/24 07:01 06/09/24 07:12 Nitroglycerin 0.4 Mg (Ed) 0.4 Mg Tab.Subl SL 06/09/24 07:02 0.4 mg STAT ONE Administration Nitroglycerin Confirm 06/09/24 07:11 Nitroglycerin 0.4 Mg (Ed) 0.4 Mg Tab.Subl Administered 06/09/24 07:12 Dose 0.4 mg SL .STK-MED ONE Nitroglycerin 1 gm 06/09/24 07:52 06/09/24 07:55 Nitroglycerin 1 Gm Packet TOP 06/09/24 07:53 1 gm STAT ONE Administration Nitroglycerin Confirm 06/09/24 07:54 Nitroglycerin 1 Gm Packet Administered 06/09/24 07:55 Dose 1 gm .ROUTE .STK-MED ONE Lab/Rad Data: Laboratory Result Diagrams 06/09/24 06:48 06/09/24 06:48 Laboratory Results 06/09/24 06/09/24 06/09/24 Range/Units 10:07 06:48 06:48 WBC (4.23-9.07) x10^3/uL RBC (4.63-6.08) x10^6/uL Hgb (13.7-17.5) g/dL Hct (40.1-51.0) % MCV (79.0-92.2) fL MCH (25.7-32.2) pg MCHC (32.3-36.5) g/dL RDW (11.6-14.4) % Plt Count (163-337) x10^3/uL MPV (9.4-12.4) fL Gran % (34.0-67.9) % Immature Gran % (Auto) (0.001-0.429) % Nucleat RBC Rel Count (0.00-0.2) % Eos # (Auto) (0.04-0.54) x10^3/uL Immature Gran # (Auto) (0.001-0.031) x10^3u/L Absolute Lymphs (auto) (1.32-3.57) x10^3/uL Absolute Monos (auto) (0.30-0.82) x10^3/uL Absolute Nucleated RBC (0.00-0.012) x10^3u/L Lymphocytes % (21.8-53.1) % Monocytes % (5.3-12.2) % Eosinophils % (0.8-7.0) % Basophils % (0.2-1.2) % Absolute Granulocytes (1.78-5.38) x10^3/uL Basophils # (0.01-0.08) x10^3/uL D-Dimer 0.39 (0.0-0.50) mg/L Sodium (135-145) mmol/L Potassium (3.5-5.1) mmol/L Chloride (98-107) mmol/L Carbon Dioxide (22-30) mmol/L Anion Gap (5-15) MEQ/L BUN (9-20) mg/dL Creatinine (0.66-1.25) mg/dL Estimated GFR ML/MIN Glucose (74-106) mg/dL Calcium (8.4-10.2) mg/dL Magnesium (1.6-2.3) mg/dL Total Bilirubin (0.2-1.3) mg/dL AST (17-59) U/L ALT (0-50) U/L Alkaline Phosphatase (38-126) U/L Troponin I < 0.012 < 0.012 (0.000-0.033) ng/mL NT-Pro-B Natriuret Pep 116 (<300) pg/mL Serum Total Protein (6.3-8.2) g/dL Albumin (3.5-5.0) g/dL Lipase (23-300) U/L 06/09/24 06/09/24 Range/Units 06:48 06:48 WBC 5.6 (4.23-9.07) x10^3/uL RBC 4.68 (4.63-6.08) x10^6/uL Hgb 14.6 (13.7-17.5) g/dL Hct 42.7 (40.1-51.0) % MCV 91.2 (79.0-92.2) fL MCH 31.2 (25.7-32.2) pg MCHC 34.2 (32.3-36.5) g/dL RDW 12.8 (11.6-14.4) % Plt Count 174 (163-337) x10^3/uL MPV 9.9 (9.4-12.4) fL Gran % 40.7 (34.0-67.9) % Immature Gran % (Auto) 0.2 (0.001-0.429) % Nucleat RBC Rel Count 0.0 (0.00-0.2) % Eos # (Auto) 0.19 (0.04-0.54) x10^3/uL Immature Gran # (Auto) 0.01 (0.001-0.031) x10^3u/L Absolute Lymphs (auto) 2.30 (1.32-3.57) x10^3/uL Absolute Monos (auto) 0.78 (0.30-0.82) x10^3/uL Absolute Nucleated RBC 0.00 (0.00-0.012) x10^3u/L Lymphocytes % 40.9 (21.8-53.1) % Monocytes % 13.9 H (5.3-12.2) % Eosinophils % 3.4 (0.8-7.0) % Basophils % 0.9 (0.2-1.2) % Absolute Granulocytes 2.30 (1.78-5.38) x10^3/uL Basophils # 0.05 (0.01-0.08) x10^3/uL D-Dimer (0.0-0.50) mg/L Sodium 139 (135-145) mmol/L Potassium 4.2 (3.5-5.1) mmol/L Chloride 106 (98-107) mmol/L Carbon Dioxide 25 (22-30) mmol/L Anion Gap 13.1 (5-15) MEQ/L BUN 12 (9-20) mg/dL Creatinine 0.70 (0.66-1.25) mg/dL Estimated GFR 101.6 ML/MIN Glucose 109 H (74-106) mg/dL Calcium 8.9 (8.4-10.2) mg/dL Magnesium 2.0 (1.6-2.3) mg/dL Total Bilirubin 0.90 (0.2-1.3) mg/dL AST 37 (17-59) U/L ALT 25 (0-50) U/L Alkaline Phosphatase 71 (38-126) U/L Troponin I (0.000-0.033) ng/mL NT-Pro-B Natriuret Pep (<300) pg/mL Serum Total Protein 6.5 (6.3-8.2) g/dL Albumin 3.8 (3.5-5.0) g/dL Lipase 43 (23-300) U/L - Progress Progress: re-examined, unchanged Air Movement: good Progress Note: Patient was turned over to me at shift change. He was still having some chest pain. I tried some nitro on him I gave him p.o. that helped minimally. I then put some Nitropaste on him and he was still having about a 5 out of 10 chest pain it had not changed. His workup was pretty unremarkable. His troponins were not elevated. His D-dimer was not elevated his EKG showed no acute ST or T changes. Is independently interpreted by me. Chest x-ray showed no acute findings. I did discuss the patient's case with the hospitalist. He agreed that we can admit him for rule out. 06/09/24 11:24 Blood Culture(s) Obtained: No Antibiotics given: No Medical Desision Making - Independent Historian Additional History obtained from: Spouse - Discussion of managment Care discussed with:: hospitalist Reviewed:: Test results Agreed on:: Treatment plan, place in obs Will see patient: in hospital - Diagnostic Testing Diagnostic test were ordered, analyzed, and reviewed by me: Yes Radiological Interpretation: Reviewed by me - Risk of complications Minimal Risk: Minimal risk of morbidity - Departure Departure Disposition: Observation Critical Care Time: No
[2024-06-09 06:48] LABS: BASOPHIL % 0.9 % (0.2-1.2); Basophil (Absolute #) 0.05 x10^3/uL (0.01-0.08); Eosinophil % 3.4 % (0.8-7.0); Eosinophil (Absolute #) 0.19 x10^3/uL (0.04-0.54); Hematocrit 42.7 % (40.1-51.0); Hemoglobin 14.6 g/dL (13.7-17.5); IMMATURE GRAN # 0.01 x10^3u/L (0.001-0.031); IMMATURE GRAN % 0.2 % (0.001-0.429); Lymphocytes % 40.9 % (21.8-53.1); Mean Cell Volume 91.2 fL (79.0-92.2); Mean Corpuscular Hemoglobin 31.2 pg (25.7-32.2); Mean Corpuscular Hgb Concent. 34.2 g/dL (32.3-36.5); Mean Platelet Volume 9.9 fL (9.4-12.4); Monocyte (Absolute #) 0.78 x10^3/uL (0.30-0.82); Monocytes % 13.9 % (5.3-12.2); Neutrophil % 40.7 % (34.0-67.9); Platelet Count 174 x10^3/uL (163-337); Red Blood Count 4.68 x10^6/uL (4.63-6.08); Red Cell Distribution Width 12.8 % (11.6-14.4); White Blood Count 5.6 x10^3/uL (4.23-9.07)
[2024-06-09] MEDS: Nitrostat 0.4 MG (ED) SL ONE ×2 (06:56→07:12)
[2024-06-09] MEDS ORDERED: Nitrostat 0.4 MG (ED) SL ONE ×2 (06:56→07:11)
[2024-06-09 07:08] LABS: ALBUMIN 3.8 g/dL (3.5-5.0); ANION GAP 13.1 MEQ/L (5-15); BILIRUBIN,TOTAL 0.9 mg/dL (0.2-1.3); Calcium 8.9 mg/dL (8.4-10.2); Creatinine 1 0.7 mg/dL (0.66-1.25); EST GLOMERULAR FILTRATION RATE 101.6 ML/MIN; Potassium 4.2 mmol/L (3.5-5.1); Total Protein 6.5 g/dL (6.3-8.2)
[2024-06-09 07:17] LABS: NT PRO BNPII 116 pg/mL (<300); TROPONIN < 0.012 ng/mL (0.000-0.033)
[2024-06-09] MEDS ORDERED: NITRO-BID 2% UD PACKETS ONE (07:54)
[2024-06-09] MEDS: NITRO-BID 2% UD PACKETS TOP ONE (07:55)
[2024-06-09] MEDS ORDERED: TORAdol 30 mg Injection ONE (08:03)
[2024-06-09] MEDS: TORAdol 30 mg Injection IV ONE (08:04)
--- NOTE | 2024-06-09 09:21 | XRAY ---
Indication: Chest pain. Comparison: April 29, 2019 Portable chest again hyperinflated with chronic pleural thickening left lung base and right mid lung calcified granuloma. Remaining lungs clear. Heart not enlarged with new left pacemaker. Bony thorax intact again with mild degenerative changes and old left 6 rib fracture. No acute findings.
[2024-06-09 10:35] VITALS: PULSE 61
[2024-06-09 11:44] VITALS: BP 110/66; RESP 14; O2SAT 100
--- NOTE | 2024-06-09 12:21 | PCM.SSS ---
History of Present Illness - Chief Complaint Chief Complaint: Chest pain Date: 06/09/24 History of Present Illness: is a 68-year-old male with a history of sick sinus syndrome status post pacemaker placement, who presented to the emergency department with left-sided chest pain that did not wake him from sleep. He states he was already awake and started at 4am. He initially rated the pain as 8/10 in intensity, which gradually improved to a pressure-like sensation rated now at 1/10. He denied associated symptoms such as palpitations, shortness of breath, or radiation of pain, and reported no clear aggravating or relieving factors. He does have a history of left upper extremity DVT but has been off Eliquis for the past two months. On evaluation, his EKG showed no acute ST or T wave changes, troponins were negative (x2), and D-dimer was not elevated. Chest X-ray revealed no acute findings. Nitroglycerinboth oral and topicalwas trialed with minimal im provement in symptoms. Given his cardiac history and ongoing chest discomfort pt admitted to the ACU for observation and further workup. His labs overall have been non-concerning, and if the third troponin remains negative, he will be a candidate for discharge with outpatient cardiology follow-up for further evaluation. - Review of Systems Constitutional: No Fever, No Chills Eyes: No Symptoms Ears, Nose, & Throat: No Symptoms Respiratory: No Cough, No Short Of Breath Cardiac: Chest Pain, No Edema, No Syncope Abdominal/Gastrointestinal: No Abdominal Pain, No Nausea, No Vomiting, No Diarrhea Genitourinary Symptoms: No Dysuria Musculoskeletal: No Back Pain, No Neck Pain Skin: No Rash Neurological: No Dizziness, No Focal Weakness, No Sensory Changes Psychological: No Symptoms Endocrine: No Symptoms Hematologic/Lymphatic: No Symptoms Immunological/Allergic: No Symptoms Medications & Allergies Home Medications: Home Medication List Ascorbic Acid [Vitamin C] 1,000 mg PO BID 07/13/22 [History Confirmed 06/09/24] Multivitamin [Multi-Vitamin Daily] 1 each PO DAILY 07/13/22 [History Confirmed 06/09/24] Allergies/Adverse Reactions: Allergies Allergy/AdvReac Type Severity Reaction Status Date / Time No Known Drug Allergies Allergy Verified 06/09/24 06:17 - Past Medical History Past Medical History: Yes Neurological History: No Pertinent History ENT History: No Pertinent History Cardiac History: No Pertinent History Respiratory History: No Pertinent History Endocrine Medical History: No Pertinent History Musculoskelatal History: Arthritis GI Medical History: No Pertinent History History: No Pertinent History Pyscho-Social History: No Pertinent History Male Reproductive Disorders: No Pertinent History Comment: 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 - Past Surgical History Past Surgical History: Yes Neuro Surgical History: No Pertinent History Cardiac History: No Pertinent History Respiratory Surgery: No Pertinent History GI Surgical History: Cholecystectomy Genitourinary Surgical Hx: No Pertinent History Musculskeletal Surgical Hx: No Pertinent History Male Surgical History: No Pertinent History Other Surgical History: BACK SURGERY,colonscopy. pacemaker Significant Family History: no pertinent family hx - Social History Smoking Status: Former smoker Exposure to second hand smoke: Yes Alcohol: None Drug Use: none - Social Determinants of Health Will the patient participate in the screening: Declined to provide Do you worry about a steady place to live?: No In the past 12 months,have you had to go without utilities?: No Have you or anyone in your house had to go without enough: No Transportation Issues: No Has anyone in your support network made you feel unsafe?: No Does the patient want assistance with any of the above?: No - Physical Exam Vital Signs: Vital Signs - 24 hr Temp Pulse Pulse Resp BP BP Pulse Ox 06/09/24 11:00 61 14 110/66 100 06/09/24 10:45 60 10 L 130/64 98 06/09/24 10:30 61 13 104/66 96 06/09/24 10:15 61 14 102/69 98 06/09/24 10:00 60 12 113/64 97 06/09/24 09:45 60 15 110/65 97 06/09/24 09:30 61 10 L 110/61 98 06/09/24 09:15 60 18 117/64 98 06/09/24 09:00 61 11 L 114/67 97 06/09/24 08:46 60 16 96/57 96 06/09/24 08:30 60 11 L 111/66 97 06/09/24 08:15 60 14 113/71 96 06/09/24 08:00 60 10 L 109/70 96 06/09/24 07:45 67 15 115/73 98 06/09/24 07:30 60 14 106/74 96 06/09/24 07:15 60 14 105/66 95 06/09/24 07:00 60 14 98/60 97 06/09/24 06:35 98 06/09/24 06:30 60 11 L 142/77 98 06/09/24 06:17 96.8 F 60 60 14 146/82 98 06/09/24 06:13 60 19 146/82 98 General Appearance: no apparent distress, alert Neurologic Exam: alert, oriented x 3, cooperative, normal mood/affect, nml cerebellar function, nml station & gait, sensation nml, No motor deficits Eye Exam: PERRL/EOMI, eyes nml inspection Ears, Nose, Throat Exam: normal ENT inspection, TMs normal, pharynx normal, moist mucous membranes Neck Exam: normal inspection, non-tender, supple, full range of motion Respiratory Exam: normal breath sounds, lungs clear, No respiratory distress Cardiovascular Exam: regular rate/rhythm, normal heart sounds, normal peripheral pulses Gastrointestinal/Abdomen Exam: soft, normal bowel sounds, No tenderness, No mass Back Exam: normal inspection, normal range of motion, No CVA tenderness, No vertebral tenderness Extremity Exam: normal inspection, normal range of motion, pelvis stable Skin Exam: normal color, warm, dry, No rash Lymphatic Exam: No adenopathy Results - Labs Lab/Micro Results: Lab Results-Last 24 Hours 06/09/24 06/09/24 06/09/24 Range/Units 06:48 06:48 06:48 WBC 5.6 (4.23-9.07) x10^3/uL RBC 4.68 (4.63-6.08) x10^6/uL Hgb 14.6 (13.7-17.5) g/dL Hct 42.7 (40.1-51.0) % MCV 91.2 (79.0-92.2) fL MCH 31.2 (25.7-32.2) pg MCHC 34.2 (32.3-36.5) g/dL RDW 12.8 (11.6-14.4) % Plt Count 174 (163-337) x10^3/uL MPV 9.9 (9.4-12.4) fL Gran % 40.7 (34.0-67.9) % Immature Gran % (Auto) 0.2 (0.001-0.429) % Nucleat RBC Rel Count 0.0 (0.00-0.2) % Eos # (Auto) 0.19 (0.04-0.54) x10^3/uL Immature Gran # (Auto) 0.01 (0.001-0.031) x10^3u/L Absolute Lymphs (auto) 2.30 (1.32-3.57) x10^3/uL Absolute Monos (auto) 0.78 (0.30-0.82) x10^3/uL Absolute Nucleated RBC 0.00 (0.00-0.012) x10^3u/L Lymphocytes % 40.9 (21.8-53.1) % Monocytes % 13.9 H (5.3-12.2) % Eosinophils % 3.4 (0.8-7.0) % Basophils % 0.9 (0.2-1.2) % Absolute Granulocytes 2.30 (1.78-5.38) x10^3/uL Basophils # 0.05 (0.01-0.08) x10^3/uL D-Dimer (0.0-0.50) mg/L Sodium 139 (135-145) mmol/L Potassium 4.2 (3.5-5.1) mmol/L Chloride 106 (98-107) mmol/L Carbon Dioxide 25 (22-30) mmol/L Anion Gap 13.1 (5-15) MEQ/L BUN 12 (9-20) mg/dL Creatinine 0.70 (0.66-1.25) mg/dL Estimated GFR 101.6 ML/MIN Glucose 109 H (74-106) mg/dL Calcium 8.9 (8.4-10.2) mg/dL Magnesium 2.0 (1.6-2.3) mg/dL Total Bilirubin 0.90 (0.2-1.3) mg/dL AST 37 (17-59) U/L ALT 25 (0-50) U/L Alkaline Phosphatase 71 (38-126) U/L Troponin I < 0.012 (0.000-0.033) ng/mL NT-Pro-B Natriuret Pep 116 (<300) pg/mL Serum Total Protein 6.5 (6.3-8.2) g/dL Albumin 3.8 (3.5-5.0) g/dL Lipase 43 (23-300) U/L 06/09/24 06/09/24 Range/Units 06:48 10:07 WBC (4.23-9.07) x10^3/uL RBC (4.63-6.08) x10^6/uL Hgb (13.7-17.5) g/dL Hct (40.1-51.0) % MCV (79.0-92.2) fL MCH (25.7-32.2) pg MCHC (32.3-36.5) g/dL RDW (11.6-14.4) % Plt Count (163-337) x10^3/uL MPV (9.4-12.4) fL Gran % (34.0-67.9) % Immature Gran % (Auto) (0.001-0.429) % Nucleat RBC Rel Count (0.00-0.2) % Eos # (Auto) (0.04-0.54) x10^3/uL Immature Gran # (Auto) (0.001-0.031) x10^3u/L Absolute Lymphs (auto) (1.32-3.57) x10^3/uL Absolute Monos (auto) (0.30-0.82) x10^3/uL Absolute Nucleated RBC (0.00-0.012) x10^3u/L Lymphocytes % (21.8-53.1) % Monocytes % (5.3-12.2) % Eosinophils % (0.8-7.0) % Basophils % (0.2-1.2) % Absolute Granulocytes (1.78-5.38) x10^3/uL Basophils # (0.01-0.08) x10^3/uL D-Dimer 0.39 (0.0-0.50) mg/L Sodium (135-145) mmol/L Potassium (3.5-5.1) mmol/L Chloride (98-107) mmol/L Carbon Dioxide (22-30) mmol/L Anion Gap (5-15) MEQ/L BUN (9-20) mg/dL Creatinine (0.66-1.25) mg/dL Estimated GFR ML/MIN Glucose (74-106) mg/dL Calcium (8.4-10.2) mg/dL Magnesium (1.6-2.3) mg/dL Total Bilirubin (0.2-1.3) mg/dL AST (17-59) U/L ALT (0-50) U/L Alkaline Phosphatase (38-126) U/L Troponin I < 0.012 (0.000-0.033) ng/mL NT-Pro-B Natriuret Pep (<300) pg/mL Serum Total Protein (6.3-8.2) g/dL Albumin (3.5-5.0) g/dL Lipase (23-300) U/L - Radiology Impressions Radiology Exams & Impressions: Radiology Procedures Category Date Time Status CHEST 1 VIEW (PORTABLE) Stat Exams 06/09/24 07:07 Completed Assessment/Plan (1) Chest pain Status: Acute Assessment & Plan: - Trop x3 negative - TSH - Lipid panel - EKG - Tele - Chest XR negative for acute concern - F/U OP with cardiology for further evaluation Code(s): R07.9 - CHEST PAIN, UNSPECIFIED (2) Pacemaker Status: Chronic Assessment & Plan: - Hx- noted Code(s): Z95.0 - PRESENCE OF CARDIAC PACEMAKER (3) Obesity (BMI 30.0-34.9) Status: Chronic Assessment & Plan: - Advised heart healthy diet and exercise per cardiology recommendations Code(s): E66.811 - OBESITY, CLASS 1 Hospital Summary - Hospital Course Hospital Course: is a 68-year-old male with a history of sick sinus syndrome status post pacemaker placement, who presented to the emergency department with left-sided chest pain that did not wake him from sleep. He states he was already awake and started at 4am. He initially rated the pain as 8/10 in intensity, which gradu ally improved to a pressure-like sensation rated now at 1/10. He denied associated symptoms such as palpitations, shortness of breath, or radiation of pain, and reported no clear aggravating or relieving factors. He does have a history of left upper extremity DVT but has been off Eliquis for the past two months. On evaluation, his EKG showed no acute ST or T wave changes, troponins were negative (x2), and D-dimer was not elevated. Chest X-ray revealed no acute findings. Nitroglycerinboth oral and topicalwas trialed with minimal improvement in symptoms. Given his cardiac history and ongoing chest discomfort pt admitted to the ACU for observation and further workup. His labs overall have been non-concerning, and if the third troponin remains negative, he will be a candidate for discharge with outpatient cardiology follow-up for further evaluation. - Vitals & Intake/Output Vital Signs: Vital Signs Temperature 96.8 F 06/09/24 06:17 Pulse Rate 61 06/09/24 11:00 Respiratory Rate 14 06/09/24 11:00 Blood Pressure 110/66 06/09/24 11:00 O2 Sat by Pulse Oximetry 100 06/09/24 11:00 Intake & Output: Intake & Output 06/07/24 06/08/24 06/09/24 06/10/24 11:59 11:59 11:59 11:59 Weight 98.8 kg - Lab Result Diagrams: 06/09/24 06:48 06/09/24 06:48 Lab Results-Last 24 Hrs: Lab Results-Last 24 Hours 06/09/24 06/09/24 06/09/24 Range/Units 06:48 06:48 06:48 WBC 5.6 (4.23-9.07) x10^3/uL RBC 4.68 (4.63-6.08) x10^6/uL Hgb 14.6 (13.7-17.5) g/dL Hct 42.7 (40.1-51.0) % MCV 91.2 (79.0-92.2) fL MCH 31.2 (25.7-32.2) pg MCHC 34.2 (32.3-36.5) g/dL RDW 12.8 (11.6-14.4) % Plt Count 174 (163-337) x10^3/uL MPV 9.9 (9.4-12.4) fL Gran % 40.7 (34.0-67.9) % Immature Gran % (Auto) 0.2 (0.001-0.429) % Nucleat RBC Rel Count 0.0 (0.00-0.2) % Eos # (Auto) 0.19 (0.04-0.54) x10^3/uL Immature Gran # (Auto) 0.01 (0.001-0.031) x10^3u/L Absolute Lymphs (auto) 2.30 (1.32-3.57) x10^3/uL Absolute Monos (auto) 0.78 (0.30-0.82) x10^3/uL Absolute Nucleated RBC 0.00 (0.00-0.012) x10^3u/L Lymphocytes % 40.9 (21.8-53.1) % Monocytes % 13.9 H (5.3-12.2) % Eosinophils % 3.4 (0.8-7.0) % Basophils % 0.9 (0.2-1.2) % Absolute Granulocytes 2.30 (1.78-5.38) x10^3/uL Basophils # 0.05 (0.01-0.08) x10^3/uL D-Dimer (0.0-0.50) mg/L Sodium 139 (135-145) mmol/L Potassium 4.2 (3.5-5.1) mmol/L Chloride 106 (98-107) mmol/L Carbon Dioxide 25 (22-30) mmol/L Anion Gap 13.1 (5-15) MEQ/L BUN 12 (9-20) mg/dL Creatinine 0.70 (0.66-1.25) mg/dL Estimated GFR 101.6 ML/MIN Glucose 109 H (74-106) mg/dL Calcium 8.9 (8.4-10.2) mg/dL Magnesium 2.0 (1.6-2.3) mg/dL Total Bilirubin 0.90 (0.2-1.3) mg/dL AST 37 (17-59) U/L ALT 25 (0-50) U/L Alkaline Phosphatase 71 (38-126) U/L Troponin I < 0.012 (0.000-0.033) ng/mL NT-Pro-B Natriuret Pep 116 (<300) pg/mL Serum Total Protein 6.5 (6.3-8.2) g/dL Albumin 3.8 (3.5-5.0) g/dL Lipase 43 (23-300) U/L 06/09/24 06/09/24 Range/Units 06:48 10:07 WBC (4.23-9.07) x10^3/uL RBC (4.63-6.08) x10^6/uL Hgb (13.7-17.5) g/dL Hct (40.1-51.0) % MCV (79.0-92.2) fL MCH (25.7-32.2) pg MCHC (32.3-36.5) g/dL RDW (11.6-14.4) % Plt Count (163-337) x10^3/uL MPV (9.4-12.4) fL Gran % (34.0-67.9) % Immature Gran % (Auto) (0.001-0.429) % Nucleat RBC Rel Count (0.00-0.2) % Eos # (Auto) (0.04-0.54) x10^3/uL Immature Gran # (Auto) (0.001-0.031) x10^3u/L Absolute Lymphs (auto) (1.32-3.57) x10^3/uL Absolute Monos (auto) (0.30-0.82) x10^3/uL Absolute Nucleated RBC (0.00-0.012) x10^3u/L Lymphocytes % (21.8-53.1) % Monocytes % (5.3-12.2) % Eosinophils % (0.8-7.0) % Basophils % (0.2-1.2) % Absolute Granulocytes (1.78-5.38) x10^3/uL Basophils # (0.01-0.08) x10^3/uL D-Dimer 0.39 (0.0-0.50) mg/L Sodium (135-145) mmol/L Potassium (3.5-5.1) mmol/L Chloride (98-107) mmol/L Carbon Dioxide (22-30) mmol/L Anion Gap (5-15) MEQ/L BUN (9-20) mg/dL Creatinine (0.66-1.25) mg/dL Estimated GFR ML/MIN Glucose (74-106) mg/dL Calcium (8.4-10.2) mg/dL Magnesium (1.6-2.3) mg/dL Total Bilirubin (0.2-1.3) mg/dL AST (17-59) U/L ALT (0-50) U/L Alkaline Phosphatase (38-126) U/L Troponin I < 0.012 (0.000-0.033) ng/mL NT-Pro-B Natriuret Pep (<300) pg/mL Serum Total Protein (6.3-8.2) g/dL Albumin (3.5-5.0) g/dL Lipase (23-300) U/L - Radiology Exams Ordered Rad Exams-Entire Visit: Radiology Procedures Category Date Time Status CHEST 1 VIEW (PORTABLE) Stat Exams 06/09/24 07:07 Completed - Discharge Discharge Date: 06/09/24 Disposition: Home, Self-Care Condition: Stable Prescriptions: Continue Multivitamin [Multi-Vitamin Daily] 1 each PO DAILY Ascorbic Acid [Vitamin C] 1,000 mg PO BID Instructions: Angina Follow up with: LUCIA TITUS [Primary Care Provider] - 06/16/24 1:00 pm MAXWELL LEYVA [CONSULTING PHYSICIAN] - Call for Appointment
[2024-06-09 13:28] LABS: TSH, 3RD Generation 0.505 mIU/L (0.470-4.680)
== END 2024-06-09 15:38 | disposition home or self-care (01) ==
LOC: ED 06:10 → MED SURG 12:05
PROVIDERS: ADMIT Internal Medicine; ATTEND Internal Medicine
DX: R07.9 Chest pain, unspecified (principal); Z95.0 Presence of cardiac pacemaker; Z86.718 Personal history of other venous thrombosis and embolism; E66.811 Obesity, class 1
CPT/HCPCS: 36415; 71045; 80053; 80061; 83690; 83721; 83735; 83880; 84443; 84484; 85025; 85379; 93005; 93041; 93268; 96374; 99285; G0378; J1885; A9270-GY

== ENCOUNTER 2024-07-06 22:04 | Emergency (ER) | payer MEDICARE ==
[2024-07-06 22:38] VITALS: TEMP 98.3
[2024-07-06 22:48] LABS: Absolute Neutrophil Ct (ANC) 6.49 x10^3/uL (1.78-5.38); BASOPHIL % 0.5 % (0.2-1.2); Basophil (Absolute #) 0.05 x10^3/uL (0.01-0.08); Eosinophil % 2.4 % (0.8-7.0); Eosinophil (Absolute #) 0.24 x10^3/uL (0.04-0.54); Hematocrit 44.1 % (40.1-51.0); IMMATURE GRAN # 0.08 x10^3u/L (0.001-0.031); IMMATURE GRAN % 0.8 % (0.001-0.429); Lymphocytes % 20.8 % (21.8-53.1); Mean Cell Volume 92.1 fL (79.0-92.2); Mean Corpuscular Hemoglobin 31.3 pg (25.7-32.2); Mean Platelet Volume 9.7 fL (9.4-12.4); Monocyte (Absolute #) 1.16 x10^3/uL (0.30-0.82); Monocytes % 11.5 % (5.3-12.2); Platelet Count 126 x10^3/uL (163-337); Red Blood Count 4.79 x10^6/uL (4.63-6.08); Red Cell Distribution Width 12.9 % (11.6-14.4); White Blood Count 10.1 x10^3/uL (4.23-9.07)
[2024-07-06] MEDS: Zofran 4 MG/2 ML VIAL IV ONE (22:53)
[2024-07-06] MEDS: MORPHINE SULFATE 4 MG INJ IV ONE (22:54)
[2024-07-06] MEDS: Sodium Chloride 0.9% 1000 ML 1,000 ML IV STA (22:54)
[2024-07-06 23:04] LABS: ALBUMIN 3.6 g/dL (3.5-5.0); ANION GAP 11.8 MEQ/L (5-15); BILIRUBIN,TOTAL 0.7 mg/dL (0.2-1.3); Calcium 9.2 mg/dL (8.4-10.2); Creatinine 1 0.84 mg/dL (0.66-1.25); EST GLOMERULAR FILTRATION RATE 96.2 ML/MIN; Total Protein 6.2 g/dL (6.3-8.2)
--- NOTE | 2024-07-07 00:03 | ERPHSYRPT ---
- History of Present Illness Time Seen by Provider: 07/06/24 22:29 Source: patient Exam Limitations: no limitations Patient Subjective Stated Complaint: "I noticed my arm starting to swell around 9pm. It doesn't hurt it's just pretty swollen and I've had a blood clot in it before after I got my pacemaker and they took me off the Eliquis around 2 months ago". Triage Nursing Assessment: Pt presents to ER with complaints of left arm swelling since 2100. Pt has history of blood clots in left arm following pacemaker placement and was put on Eliquis for several months, he has since discontinued Eliquis approx 2 months ago. Pt denies pain. He is alert and oriented x 3. Skin is pink, warm, and dry. Left arm is swollen, red. Pulses are strong and present. ROM is intact. Complains of some intermittent dizziness. Physician History: 68 years old male with history of sick sinus syndrome with pacemaker placement, history of DVT in the left upper extremity post pacemaker placement for which she was on Eliquis and taken off of it for 2 months presented in the ER when he noticed swelling of left upper extremity around 9 PM after taking shower. Patient reports it feels tightness and pressure in the whole arm but no pain. No difficulty movements. No numbness or tingling. Denies any fall or trauma. No chest pain palpitations or shortness of breath. No fever or chills reported. Allergies/Adverse Reactions: No Known Drug Allergies Allergy (Verified 07/06/24 22:38) Home Medications: Cyclobenzaprine HCl 5 mg PO BIDPRN PRN 07/06/24 [History] Hx Tetanus, Diphtheria Vaccination/Date Given: Yes Hx Influenza Vaccination/Date Given: Yes Hx Pneumococcal Vaccination/Date Given: Yes Immunizations Up to Date: Yes Travel Risk - International Travel Have you traveled outside of the country in past 3 weeks: No - Emerging Infectious Disease Are you exhibiting symptoms associated with any current EIDs: No - Review of Systems Constitutional: No Symptoms Ears, Nose, & Throat: No Symptoms Respiratory: No Symptoms Cardiac: No Symptoms Abdominal/Gastrointestinal: No Symptoms Genitourinary Symptoms: No Symptoms Musculoskeletal: Myalgias Skin: No Symptoms Neurological: No Symptoms Psychological: No Symptoms Endocrine: No Symptoms Hematologic/Lymphatic: No Symptoms - Past Medical History Pertinent Past Medical History: Yes Neurological History: No Pertinent History ENT History: No Pertinent History Cardiac History: Other Respiratory History: No Pertinent History Endocrine Medical History: No Pertinent History Musculoskeletal History: Arthritis GI Medical History: No Pertinent History History: No Pertinent History Psycho-Social History: No Pertinent History Male Reproductive Disorders: No Pertinent History Other Medical History: 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 Bradycardia - Past Surgical History Past Surgical History: Yes Neuro Surgical History: No Pertinent History Cardiac: No Pertinent History Respiratory: No Pertinent History Gastrointestinal: Cholecystectomy Genitourinary: No Pertinent History Musculoskeletal: No Pertinent History Male Surgical History: No Pertinent History Other Surgical History: BACK SURGERY,colonscopy. pacemaker Significant Family History: no pertinent family hx - Social History Smoking Status: Never smoker Exposure to second hand smoke: No Drug Use: none - Social Determinants of Health Will the patient participate in the screening: Yes Do you worry about a steady place to live?: No Do you have any problems with any of the following?: No known problems In the past 12 months,have you had to go without utilities?: No Transportation Issues: No Has anyone in your support network made you feel unsafe?: No Have you or anyone in your house had to go w/o enough food: No - Nursing Vital Signs Nursing Vital Signs: Initial Vital Signs Pulse Rate 60 07/06/24 22:30 Respiratory Rate 16 07/06/24 22:30 Blood Pressure 116/72 07/06/24 22:30 O2 Sat by Pulse Oximetry 97 07/06/24 22:30 Pain Scale Pain Intensity 0 - Physical Exam General Appearance: no apparent distress Neck Exam: normal inspection, non-tender, supple, full range of motion Cardiovascular/Respiratory Exam: chest non-tender, normal breath sounds, regular rate/rhythm Back Exam: normal inspection, normal range of motion Shoulder Exam: normal inspection, non-tender, no evidence of injury, normal ROM Elbow/Forearm Exam: swelling (Diffuse swelling of left upper extremity with no tenderness. No erythema.), No bone tenderness Wrist Exam: normal inspection, non-tender, no evidence of injury Hand Exam: normal inspection, non-tender Neuro/Tendon Exam: normal sensation, normal motor functions, normal tendon functions Mental Status Exam: alert, oriented x 3, cooperative Skin Exam: normal color SpO2 Interpretation: normal SpO2: 97 O2 Delivery: Room Air Ordered Tests: Active Orders 24 hr Category Date Time Status VENOUS UNILAT/LIMITED EXTREMIT [US] Stat Exams 07/07/24 00:30 Ordered CBC W DIFF Stat Lab 07/06/24 22:40 Completed CMP Stat Lab 07/06/24 22:40 Completed D-DIMER QUANTITATIVE Stat Lab 07/06/24 22:52 Completed Medication Summary Discontinued Medications Generic Name Dose Route Start Last Admin Trade Name Tim PRN Reason Stop Dose Admin Sodium Chloride 1,000 mls @ 999 mls/hr 07/06/24 22:30 07/06/24 22:54 Sodium Chloride 0.9% 1000 Ml IV 07/06/24 23:30 Not Given .Q1H1M STA Morphine Sulfate 4 mg 07/06/24 22:30 07/06/24 22:54 Morphine Sulfate 4 Mg/Ml Injection IV 07/06/24 22:31 Not Given STAT ONE Ondansetron HCl 4 mg 07/06/24 22:30 07/06/24 22:53 Ondansetron Hcl 4 Mg/2 Ml Vial IV 07/06/24 22:31 Not Given STAT ONE Lab/Rad Data: Laboratory Result Diagrams 07/06/24 22:40 07/06/24 22:40 Laboratory Results 07/06/24 07/06/24 07/06/24 Range/Units 22:52 22:40 22:40 WBC 10.1 H (4.23-9.07) x10^3/uL RBC 4.79 (4.63-6.08) x10^6/uL Hgb 15.0 (13.7-17.5) g/dL Hct 44.1 (40.1-51.0) % MCV 92.1 (79.0-92.2) fL MCH 31.3 (25.7-32.2) pg MCHC 34.0 (32.3-36.5) g/dL RDW 12.9 (11.6-14.4) % Plt Count 126 L (163-337) x10^3/uL MPV 9.7 (9.4-12.4) fL Gran % 64.0 (34.0-67.9) % Immature Gran % (Auto) 0.8 H (0.001-0.429) % Nucleat RBC Rel Count 0.0 (0.00-0.2) % Eos # (Auto) 0.24 (0.04-0.54) x10^3/uL Immature Gran # (Auto) 0.08 H (0.001-0.031) x10^3u/L Absolute Lymphs (auto) 2.10 (1.32-3.57) x10^3/uL Absolute Monos (auto) 1.16 H (0.30-0.82) x10^3/uL Absolute Nucleated RBC 0.00 (0.00-0.012) x10^3u/L Lymphocytes % 20.8 L (21.8-53.1) % Monocytes % 11.5 (5.3-12.2) % Eosinophils % 2.4 (0.8-7.0) % Basophils % 0.5 (0.2-1.2) % Absolute Granulocytes 6.49 H (1.78-5.38) x10^3/uL Basophils # 0.05 (0.01-0.08) x10^3/uL D-Dimer 1.26 H* (0.0-0.50) mg/L Sodium 136 (135-145) mmol/L Potassium 4.0 (3.5-5.1) mmol/L Chloride 100 (98-107) mmol/L Carbon Dioxide 29 (22-30) mmol/L Anion Gap 11.8 (5-15) MEQ/L BUN 19 (9-20) mg/dL Creatinine 0.84 (0.66-1.25) mg/dL Estimated GFR 96.2 ML/MIN Glucose 112 H (74-106) mg/dL Calcium 9.2 (8.4-10.2) mg/dL Total Bilirubin 0.70 (0.2-1.3) mg/dL AST 28 (17-59) U/L ALT 23 (0-50) U/L Alkaline Phosphatase 107 (38-126) U/L Serum Total Protein 6.2 L (6.3-8.2) g/dL Albumin 3.6 (3.5-5.0) g/dL - Progress Progress: unchanged, re-examined Progress Note: 07/07/24 01:14 Differential diagnosis includes but not limited to: DVT left upper extremity, cellulitis, osseous injury, lymphedema 68 years old is evaluated in the ER for left arm/upper extremity swelling with some tightness but no pain or signs symptoms of cellulitis. No trauma. Has no tenderness but significant swelling as compared to the right upper extremity. Distal neurovascular is intact. No signs of thoracic outlet obstruction White count of 10, chemistries fairly unremarkable, has positive D-dimer. Ultrasound left upper extremity revealed nonocclusive axillary thrombus with no thrombus in the subclavian per preliminary report with pending official final report. Went over in detail about risk and benefits of Eliquis and patient has no absolute contraindications and wants to go ahead with it. Patient was on Eliquis before for subclavian thrombus, I will restart him 1 Eliquis, given first dose in here and will continue to go home. Recommended outpatient follow-up with his primary care and may need a referral for hematology oncology. Discussed signs symptoms of worsening needing return to ER which he seems understanding. Stable for discharge. Complexity of problems addressed: Moderate acute Complexity of data reviewed/analyzed: Moderate Risk of complication: Moderate Counseled pt/family regarding: lab results, diagnosis, need for follow-up, rad results Medical Desision Making - Independent Historian Additional History obtained from: Spouse - Diagnostic Testing Diagnostic test were ordered, analyzed, and reviewed by me: Yes Radiological Interpretation: Reviewed by me - Risk of complications The pt has a mod risk of morbidity or mortality based on: Need for prescription drug management - Departure Departure Disposition: Home Clinical Impression: Acute thrombosis of left axillary vein Condition: Stable Critical Care Time: No Referrals: LUCIA TITUS [Primary Care Provider, [facility]] - Follow up with PCP 1 day Referral Note: Call for appointment for reevaluation Instructions: Deep vein thrombosis (blood clot in the arm) Additional Instructions: Follow-up with primary care for reevaluation. May need referral for hematology oncology for further evaluation. Return to ER for increasing pain swelling, difficulty movements, numbness tingling or weakness of left upper extremity Prescriptions: Apixaban [Eliquis] 5 mg PO BID 30 Days #74 tab
[2024-07-07 01:08] VITALS: PULSE 60; RESP 16
[2024-07-07 01:20] VITALS: O2SAT 97
[2024-07-07] MEDS: ELIQUIS 2.5 MG TABLET PO STA (01:38)
[2024-07-07 02:04] VITALS: BP 111/64
--- NOTE | 2024-07-07 09:26 | XRAY ---
Indication: Left upper extremity swelling. Two-dimensional sonogram and color Doppler imaging major venous vessels left upper extremity performed. Comparison: None Small nonoccluding thrombi in axillary vein. No thrombus in the remaining visualized left internal jugular, subclavian, brachial, basilic, cephalic, radial, and ulnar veins. Patent veins demonstrate normal compressibility. Impression: Nonoccluding thrombus in axillary vein. Common: Preliminary report was given.
== END 2024-07-07 02:04 | disposition home or self-care (01) ==
LOC: ED 22:04
DX: I82.A12 Acute embolism and thrombosis of left axillary vein (principal); Z79.01 Long term (current) use of anticoagulants; Z79.899 Other long term (current) drug therapy; Z95.0 Presence of cardiac pacemaker
CPT/HCPCS: 36415; 80053; 85025; 85379; 93971; 99284; A9270-GY

== ENCOUNTER 2024-11-08 13:11 | Day surgery (SDC) | payer MEDICARE, SELFPAY ==
[2024-11-08] MEDS ORDERED: LIDOCAINE HCL 1% 50 MG/5 ML VL IJ ONE (13:12)
[2024-11-08] MEDS ORDERED: methylPREDNISolone acetate IM ONE (13:12)
[2024-11-08] MEDS ORDERED: BUPIVACAINE 0.5% VIAL IJ ONE (13:12)
[2024-11-08] MEDS ORDERED: propofoL IV ONE (14:20)
[2024-11-08] MEDS ORDERED: Lactated Ringers 1,000 ML IV ONE (16:11)
--- NOTE | 2024-11-08 17:05 | XRAY ---
Indication: Left L4-S1 RFA. Intraoperative fluoroscopy provided for 19 seconds. 4 digital spot image submitted for interpretation demonstrates posterior needle tips projecting over expected left L4-S1 nerve roots. Correlate with intraoperative findings/report. Incidental incompletely visualized mid lumbar fusion hardware.
--- NOTE | 2024-11-08 17:07 | XRAY ---
19 seconds of fluoroscopy was used in surgery for a left L4-S1 RFA.
== END 2024-11-08 15:00 | disposition home or self-care (01) ==
LOC: SDC-PAIN 13:11
PROVIDERS: ATTEND Psychiatry & Neurology Pain Medicine
DX: M47.817 Spondylosis without myelopathy or radiculopathy, lumbosacral region (principal)

== ENCOUNTER 2024-11-25 23:02 | Emergency (ER) | payer MEDICARE ==
--- NOTE | 2024-11-25 23:14 | ERPHSYRPT ---
- History of Present Illness Time Seen by Provider: 11/25/24 23:14 Historian: patient Exam Limitations: no limitations Physician History: Patient presents with left-sided chest pain as well as left shoulder/arm pain and left hip/leg pain. He has a history of pacemaker was placed last year. He just reports feeling unwell today. He denies shortness of breath, cough, congestion or fever. No leg swelling reported. 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 Nitro Today/Relief: 0.4 mg x 1, provided by ED, mild relief Aspirin Treatment Today: 81 mg x 4, provided by ED Allergies/Adverse Reactions: No Known Drug Allergies Allergy (Verified 11/25/24 23:18) Home Medications: Gabapentin 300 mg PO TID 10/22/24 [History] Hx Tetanus, Diphtheria Vaccination/Date Given: Yes Hx Influenza Vaccination/Date Given: Yes Hx Pneumococcal Vaccination/Date Given: Yes Travel Risk - Emerging Infectious Disease Are you exhibiting symptoms associated with any current EIDs: No - Review of Systems All Other Systems: Reviewed and Negative - Past Medical History Other Medical History: 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 Bradycardia, hx blood clots in left arm post pacemaker procedure - Past Surgical History Cardiac: No Pertinent History, Pacemaker Other Surgical History: BACK SURGERY (screws/bars placed) ,colonscopy. pacemaker Significant Family History: no pertinent family hx - Social History Smoking Status: Never smoker Exposure to second hand smoke: No Drug Use: none - Social Determinants of Health Will the patient participate in the screening: Yes Do you worry about a steady place to live?: No In the past 12 months,have you had to go without utilities?: No Transportation Issues: No Has anyone in your support network made you feel unsafe?: No Have you or anyone in your house had to go w/o enough food: No - Nursing Vital Signs Nursing Vital Signs: Initial Vital Signs Temperature 97 F 11/25/24 23:07 Pulse Rate 60 11/25/24 23:07 Respiratory Rate 15 11/25/24 23:07 Blood Pressure 162/79 11/25/24 23:07 O2 Sat by Pulse Oximetry 99 11/25/24 23:07 Pain Scale Pain Intensity 6 - Physical Exam General Appearance: no apparent distress Neck Exam: normal inspection, supple, full range of motion Respiratory Exam: normal breath sounds, lungs clear, airway intact, No respiratory distress Cardiovascular Exam: regular rate/rhythm, normal heart sounds, capillary refill <2 sec, edema (trace) Gastrointestinal/Abdomen Exam: soft, normal bowel sounds, No tenderness Extremity Exam: limited range of motion (left shoulder and left hip), other (painful ROM) Neurologic Exam: alert, oriented x 3, cooperative SpO2 Interpretation: normal O2 Delivery: Room Air - Course Nursing assessment & vital signs reviewed: Yes EKG Interpreted by Me: RATE (60), NORMAL AXIS, NORMAL INTERVALS, NORMAL QRS, NORMAL ST-T, Other (atrial paced) Ordered Tests: Active Orders 24 hr Category Date Time Status Sales Development Representative STAT Care 11/25/24 23:15 Active EKG-ER Only STAT Care 11/25/24 23:14 Active IV Insertion STAT Care 11/25/24 23:14 Active CHEST 1 VIEW (PORTABLE) Stat Exams 11/25/24 23:15 Taken HIP UNI (2V) INCL PEL IF DONE Stat Exams 11/25/24 23:16 Taken SHOULDER Stat Exams 11/25/24 23:16 Taken CBC W DIFF Stat Lab 11/25/24 23:25 Completed CMP Stat Lab 11/25/24 23:25 Completed D-DIMER QUANTITATIVE Stat Lab 11/25/24 23:25 Completed NT PRO BNPII Stat Lab 11/25/24 23:25 Completed TROPONIN Q2H Lab 11/25/24 23:25 Completed TROPONIN Q2H Lab 11/26/24 01:15 Ordered TSH, 3RD Generation Stat Lab 11/25/24 23:18 Completed UA W/RFX UR CULTURE Stat Lab 11/25/24 23:18 Ordered Urine Triage Profile Stat Lab 11/25/24 23:14 Ordered Medication Summary Discontinued Medications Generic Name Dose Route Start Last Admin Trade Name Freq PRN Reason Stop Dose Admin Aspirin 324 mg 11/25/24 23:14 11/25/24 23:23 Aspirin 81 Mg Tab.Chew PO 11/25/24 23:15 324 mg STAT ONE Administration Aspirin Confirm 11/25/24 23:22 Aspirin 81 Mg Tab.Chew Administered 11/25/24 23:23 Dose 324 mg .ROUTE .STK-MED ONE Nitroglycerin 0.4 mg 11/25/24 23:14 11/25/24 23:23 Nitroglycerin 0.4 Mg (Ed) 0.4 Mg Tab.Subl SL 11/25/24 23:15 0.4 mg STAT ONE Administration Nitroglycerin Confirm 11/25/24 23:23 Nitroglycerin 0.4 Mg (Ed) 0.4 Mg Tab.Subl Administered 11/25/24 23:24 Dose 0.4 mg SL .STK-MED ONE Lab/Rad Data: Laboratory Result Diagrams 11/25/24 23:25 11/25/24 23:25 Laboratory Results 11/26/24 11/26/24 11/26/24 Range/Units 01:25 00:00 00:00 WBC (4.23-9.07) x10^3/uL RBC (4.63-6.08) x10^6/uL Hgb (13.7-17.5) g/dL Hct (40.1-51.0) % MCV (79.0-92.2) fL MCH (25.7-32.2) pg MCHC (32.3-36.5) g/dL RDW (11.6-14.4) % Plt Count (163-337) x10^3/uL MPV (9.4-12.4) fL Gran % (34.0-67.9) % Immature Gran % (Auto) (0.001-0.429) % Nucleat RBC Rel Count (0.00-0.2) % Eos # (Auto) (0.04-0.54) x10^3/uL Immature Gran # (Auto) (0.001-0.031) x10^3u/L Absolute Lymphs (auto) (1.32-3.57) x10^3/uL Absolute Monos (auto) (0.30-0.82) x10^3/uL Absolute Nucleated RBC (0.00-0.012) x10^3u/L Lymphocytes % (21.8-53.1) % Monocytes % (5.3-12.2) % Eosinophils % (0.8-7.0) % Basophils % (0.2-1.2) % Absolute Granulocytes (1.78-5.38) x10^3/uL Basophils # (0.01-0.08) x10^3/uL D-Dimer (0.0-0.50) mg/L Sodium (135-145) mmol/L Potassium (3.5-5.1) mmol/L Chloride (98-107) mmol/L Carbon Dioxide (22-30) mmol/L Anion Gap (5-15) MEQ/L BUN (9-20) mg/dL Creatinine (0.66-1.25) mg/dL Estimated GFR ML/MIN Glucose (74-106) mg/dL Calcium (8.4-10.2) mg/dL Total Bilirubin (0.2-1.3) mg/dL AST (17-59) U/L ALT (0-50) U/L Alkaline Phosphatase (38-126) U/L Troponin I < 0.012 (0.000-0.033) ng/mL NT-Pro-B Natriuret Pep (<300) pg/mL Serum Total Protein (6.3-8.2) g/dL Albumin (3.5-5.0) g/dL Free T4 0.97 (0.78-2.19) ng/dL TSH 3rd Generation 0.901 (0.470-4.680) mIU/L 11/25/24 11/25/24 11/25/24 Range/Units 23:25 23:25 23:25 WBC (4.23-9.07) x10^3/uL RBC (4.63-6.08) x10^6/uL Hgb (13.7-17.5) g/dL Hct (40.1-51.0) % MCV (79.0-92.2) fL MCH (25.7-32.2) pg MCHC (32.3-36.5) g/dL RDW (11.6-14.4) % Plt Count (163-337) x10^3/uL MPV (9.4-12.4) fL Gran % (34.0-67.9) % Immature Gran % (Auto) (0.001-0.429) % Nucleat RBC Rel Count (0.00-0.2) % Eos # (Auto) (0.04-0.54) x10^3/uL Immature Gran # (Auto) (0.001-0.031) x10^3u/L Absolute Lymphs (auto) (1.32-3.57) x10^3/uL Absolute Monos (auto) (0.30-0.82) x10^3/uL Absolute Nucleated RBC (0.00-0.012) x10^3u/L Lymphocytes % (21.8-53.1) % Monocytes % (5.3-12.2) % Eosinophils % (0.8-7.0) % Basophils % (0.2-1.2) % Absolute Granulocytes (1.78-5.38) x10^3/uL Basophils # (0.01-0.08) x10^3/uL D-Dimer 0.30 (0.0-0.50) mg/L Sodium 139 (135-145) mmol/L Potassium 3.9 (3.5-5.1) mmol/L Chloride 105 (98-107) mmol/L Carbon Dioxide 29 (22-30) mmol/L Anion Gap 8.0 (5-15) MEQ/L BUN 10 (9-20) mg/dL Creatinine 0.82 (0.66-1.25) mg/dL Estimated GFR 96.9 ML/MIN Glucose 98 (74-106) mg/dL Calcium 8.9 (8.4-10.2) mg/dL Total Bilirubin 0.50 (0.2-1.3) mg/dL AST 33 (17-59) U/L ALT 22 (0-50) U/L Alkaline Phosphatase 78 (38-126) U/L Troponin I < 0.012 (0.000-0.033) ng/mL NT-Pro-B Natriuret Pep 83.5 (<300) pg/mL Serum Total Protein 6.7 (6.3-8.2) g/dL Albumin 3.8 (3.5-5.0) g/dL Free T4 (0.78-2.19) ng/dL TSH 3rd Generation (0.470-4.680) mIU/L 11/25/24 Range/Units 23:25 WBC 8.7 (4.23-9.07) x10^3/uL RBC 4.56 L (4.63-6.08) x10^6/uL Hgb 14.2 (13.7-17.5) g/dL Hct 42.7 (40.1-51.0) % MCV 93.6 H (79.0-92.2) fL MCH 31.1 (25.7-32.2) pg MCHC 33.3 (32.3-36.5) g/dL RDW 13.3 (11.6-14.4) % Plt Count 159 L (163-337) x10^3/uL MPV 10.1 (9.4-12.4) fL Gran % 34.2 (34.0-67.9) % Immature Gran % (Auto) 0.2 (0.001-0.429) % Nucleat RBC Rel Count 0.0 (0.00-0.2) % Eos # (Auto) 0.23 (0.04-0.54) x10^3/uL Immature Gran # (Auto) 0.02 (0.001-0.031) x10^3u/L Absolute Lymphs (auto) 4.48 H (1.32-3.57) x10^3/uL Absolute Monos (auto) 0.93 H (0.30-0.82) x10^3/uL Absolute Nucleated RBC 0.00 (0.00-0.012) x10^3u/L Lymphocytes % 51.7 (21.8-53.1) % Monocytes % 10.7 (5.3-12.2) % Eosinophils % 2.7 (0.8-7.0) % Basophils % 0.5 (0.2-1.2) % Absolute Granulocytes 2.96 (1.78-5.38) x10^3/uL Basophils # 0.04 (0.01-0.08) x10^3/uL D-Dimer (0.0-0.50) mg/L Sodium (135-145) mmol/L Potassium (3.5-5.1) mmol/L Chloride (98-107) mmol/L Carbon Dioxide (22-30) mmol/L Anion Gap (5-15) MEQ/L BUN (9-20) mg/dL Creatinine (0.66-1.25) mg/dL Estimated GFR ML/MIN Glucose (74-106) mg/dL Calcium (8.4-10.2) mg/dL Total Bilirubin (0.2-1.3) mg/dL AST (17-59) U/L ALT (0-50) U/L Alkaline Phosphatase (38-126) U/L Troponin I (0.000-0.033) ng/mL NT-Pro-B Natriuret Pep (<300) pg/mL Serum Total Protein (6.3-8.2) g/dL Albumin (3.5-5.0) g/dL Free T4 (0.78-2.19) ng/dL TSH 3rd Generation (0.470-4.680) mIU/L - Progress Progress: improved Air Movement: good Progress Note: This patient presents with chest pain, with symptoms suggestive of noncardiac chest pain. History without high risk features (e.g., not substernal, no exertional component, not relieved with rest). Exam without evidence of volume overload. EKG without signs of active ischemia. HEART score: 3. Given the timing of pain to ER presentation, plan to send 2 troponin to evaluate for NSTEMI. Presentation not consistent with acute PE, pneumothorax, thoracic arotic dissection, cardiac effusion or tamponade. Plan: labs, troponin x 2, EKG, CXR, L shoulder XR, L hip XR, ASA, pain control, serial reassessment 11/26/24 02:01 Troponin neg x 2, sent nitro to pharmacy. Advise close follow up with PCP. Blood Culture(s) Obtained: No Antibiotics given: No Counseled pt/family regarding: lab results, diagnosis, need for follow-up, rad results Medical Desision Making - Diagnostic Testing Diagnostic test were ordered, analyzed, and reviewed by me: Yes Radiological Interpretation: Interpreted by me - Risk of complications The pt has a mod risk of morbidity or mortality based on: Need for prescription drug management - Departure Departure Disposition: Home Clinical Impression: Chest pain, Osteoarthritis of left hip, Rotator cuff arthropathy of left shoulder Condition: Stable Critical Care Time: No Referrals: LUCIA TITUS [Primary Care Provider, [facility]] - Follow up/PCP as directed Instructions: Chest Pain (DC) Prescriptions: Nitroglycerin 0.4 mg Tablet [Nitrostat 0.4 MG Tablet] 0.4 mg SL Q5MIN PRN MR X 3 PRN #15 tablet PRN Reason: Chest Pain
[2024-11-25 23:17] VITALS: TEMP 97
[2024-11-25] MEDS ORDERED: BABY ASPIRIN 81 MG CHEW ONE (23:22)
[2024-11-25] MEDS ORDERED: Nitrostat 0.4 MG (ED) SL ONE (23:23)
[2024-11-25] MEDS: Nitrostat 0.4 MG (ED) SL ONE (23:23)
[2024-11-25] MEDS: BABY ASPIRIN 81 MG CHEW PO ONE (23:23)
[2024-11-25 23:31] LABS: BASOPHIL % 0.5 % (0.2-1.2); Basophil (Absolute #) 0.04 x10^3/uL (0.01-0.08); Eosinophil (Absolute #) 0.23 x10^3/uL (0.04-0.54); Hematocrit 42.7 % (40.1-51.0); Hemoglobin 14.2 g/dL (13.7-17.5); IMMATURE GRAN # 0.02 x10^3u/L (0.001-0.031); IMMATURE GRAN % 0.2 % (0.001-0.429); Lymphocyte (Absolute #) 4.48 x10^3/uL (1.32-3.57); Mean Corpuscular Hemoglobin 31.1 pg (25.7-32.2); Mean Corpuscular Hgb Concent. 33.3 g/dL (32.3-36.5); Monocyte (Absolute #) 0.93 x10^3/uL (0.30-0.82); NUCLEATED RBC # 0.00 x10^3u/L (0.00-0.012); NUCLEATED RBC % 0.0 % (0.00-0.2); Platelet Count 159 x10^3/uL (163-337); Red Blood Count 4.56 x10^6/uL (4.63-6.08); White Blood Count 8.7 x10^3/uL (4.23-9.07)
[2024-11-25 23:46] LABS: Calcium 8.9 mg/dL (8.4-10.2); Carbon Dioxide 29.0 mmol/L (22-30); Creatinine 1 0.82 mg/dL (0.66-1.25); EST GLOMERULAR FILTRATION RATE 96.9 ML/MIN; Glucose 98.0 mg/dL (74-106); Potassium 3.9 mmol/L (3.5-5.1); SGOT/AST 33.0 U/L (17-59); SGPT/ALT 22.0 U/L (0-50); Total Protein 6.7 g/dL (6.3-8.2)
[2024-11-25 23:58] LABS: NT PRO BNPII 83.5 pg/mL (<300); TROPONIN < 0.012 ng/mL (0.000-0.033)
[2024-11-26 01:36] VITALS: PULSE 60; O2SAT 98
[2024-11-26 02:05] VITALS: BP 117/85; RESP 17
--- NOTE | 2024-11-26 08:17 | XRAY ---
Indication: Chest pain. Comparison: June 09, 2024 Portable chest unchanged again hyperinflated with chronic pleural thickening left lung base and right lung calcified granuloma. Heart not enlarged again with left pacemaker. Bony thorax intact again with osteopenia, degenerative changes, and old left 6 rib fracture. No new/acute findings.
--- NOTE | 2024-11-26 08:17 | XRAY ---
Indication: Pain. Comparison: None AP pelvis and 2 view left hip demonstrates osteopenia, mild degenerative changes both hips, mild lower lumbar degenerative spondylosis with incompletely visualized fusion hardware, and pelvic surgical clip. No acute bony, articular, or soft tissue abnormalities.
--- NOTE | 2024-11-26 08:24 | XRAY ---
Indication: Pain. Comparison: December 10, 2020 3 view left shoulder now demonstrates slightly high riding humeral head commonly seen with rotator cuff tear. Stable osteopenia, mild AC degenerative arthropathy, and old left 6 rib fracture. New incompletely visualized left pacemaker. No acute findings.
== END 2024-11-26 02:05 | disposition home or self-care (01) ==
LOC: ED 23:02
DX: R07.9 Chest pain, unspecified (principal); M16.12 Unilateral primary osteoarthritis, left hip; M19.012 Primary osteoarthritis, left shoulder; Z79.01 Long term (current) use of anticoagulants; Z79.899 Other long term (current) drug therapy